=== PATIENT | female | born 1995 | race Caucasian/White ===

== ENCOUNTER 2017-09-17 05:42 | Inpatient (IN) | payer OTHER ==
[2017-09-17] MEDS ORDERED: NICOTINE 21MG/24HR PATCH TRANSDERM STA (06:23)
[2017-09-17 06:29] LABS: Amphetamine Screen,Urine Not Detected (NotDetected); Barbiturate Screen,Urine Not Detected (NotDetected); Benzodiazepines Screen,Urine Not Detected (NotDetected); Cocaine Screen,Urine Not Detected (NotDetected); Methadone Screen, Urine Not Detected (NotDetected); Opiate Screen,Urine Not Detected (NotDetected); Oxycodone Screen, Urine Not Detected (NotDetected); Phencyclidine Screen,Urine Not Detected (NotDetected); Tricyclic Antidepressant,Urine Not Detected (NotDetected); Urn Cannabinoid Scrn Detected (NotDetected)
--- NOTE | 2017-09-17 06:31 | ED ---
General Adult HPI - General Source: patient, RN notes reviewed Mode of arrival: ambulatory Limitations: no limitations <Peter Mccrary - Last Filed: 09/17/17 06:59> <Peter Bronson - Last Filed: 09/17/17 13:22> - General Chief complaint: Psychiatric Symptoms Stated complaint: Mental Health Time Seen by Provider: 09/17/17 05:50 - History of Present Illness Initial comments: 22-year-old female presenting with suicidal ideation and threatening behavior. Patient states that she's been feeling depressed for several weeks. This evening she did have a kitchen knife, threatening to take her life. She admits to ingesting alcohol, denies taking any other pills or medications. She has no significant past medical history. She has never been evaluated for suicidal ideation in the past. She states she has dealt with depression and suicidal thoughts for many years. (Peter Mccrary) - Related Data Home Medications Medication Instructions Recorded Confirmed No Known Home Medications [No 09/17/17 09/17/17 Known Home Medications] Allergies Allergy/AdvReac Type Severity Reaction Status Date / Time amoxicillin Allergy Rash/Hives Verified 09/17/17 10:08 Review of Systems ROS Other: All systems not noted in ROS Statement are negative. <Peter Mccrary - Last Filed: 09/17/17 06:59> ROS Other: All systems not noted in ROS Statement are negative. <Peter Bronson - Last Filed: 09/17/17 13:22> ROS Statement: Those systems with pertinent positive or pertinent negative responses have been documented in the HPI. Past Medical History Past Medical History: No Reported History History of Any Multi-Drug Resistant Organisms: None Reported Past Surgical History: No Surgical Hx Reported Past Psychological History: Anxiety, Bipolar, Depression Smoking Status: Current every day smoker Past Alcohol Use History: Occasional Past Drug Use History: None Reported <Peter Mccrary - Last Filed: 09/17/17 06:59> General Exam Limitations: no limitations General appearance: alert, appears intoxicated Head exam: Present: atraumatic, normocephalic Eye exam: Present: normal appearance, PERRL, EOMI ENT exam: Present: normal exam Neck exam: Present: normal inspection. Absent: tenderness, meningismus Respiratory exam: Present: normal lung sounds bilaterally. Absent: respiratory distress, wheezes Cardiovascular Exam: Present: regular rate, normal rhythm GI/Abdominal exam: Present: soft. Absent: distended, tenderness Extremities exam: Present: normal inspection, full ROM. Absent: normal capillary refill, pedal edema Neurological exam: Present: alert, oriented X3, CN II-XII intact. Absent: motor sensory deficit Psychiatric exam: Present: depressed, anxious, suicidal ideation Skin exam: Present: warm, dry, intact. Absent: cyanosis, diaphoretic <Peter Mccrary - Last Filed: 09/17/17 06:59> Course <Peter Mccrary - Last Filed: 09/17/17 06:59> <Peter Bronson - Last Filed: 09/17/17 13:22> Vital Signs 09/17/17 09/17/17 09/17/17 05:44 07:20 08:27 Temperature 98.8 F Pulse Rate 107 H Respiratory 20 16 16 Rate Blood Pressure O2 Sat by Pulse 99 Oximetry 09/17/17 13:18 Temperature Pulse Rate 92 Respiratory 15 Rate Blood Pressure 155/77 O2 Sat by Pulse 100 Oximetry - Reevaluation(s) Reevaluation #1: 09/17/17 0700 Patient's care is signed out to Dr. Bronson at shift change, awaiting sobriety and EPS evaluation for suicidal ideation. 09/17/17 06:59 (Peter Mccrary) Reevaluation #2: 09/17/17 13:22 The patient was evaluated by the EPS service after she was deemed to be sober she will be admitted for inpatient treatment. (Peter Bronson) - Lab Data Lab Results 09/17/17 Range/Units 06:11 Urine Opiates Screen Not Detected (NotDetected) Ur Oxycodone Screen Not Detected (NotDetected) Urine Methadone Screen Not Detected (NotDetected) Ur Propoxyphene Screen Not Detected (NotDetected) Ur Barbiturates Screen Not Detected (NotDetected) U Tricyclic Antidepress Not Detected (NotDetected) Ur Phencyclidine Scrn Not Detected (NotDetected) Ur Amphetamines Screen Not Detected (NotDetected) U Methamphetamines Scrn Not Detected (NotDetected) U Benzodiazepines Scrn Not Detected (NotDetected) Urine Cocaine Screen Not Detected (NotDetected) U Marijuana (THC) Screen Detected H (NotDetected) Disposition <Peter Mccrary - Last Filed: 09/17/17 06:59> <Peter Bronson - Last Filed: 09/17/17 13:22> Clinical Impression: Depression, Suicidal ideation, Alcohol intoxication Disposition: TRANSFER TO PSYCH HOSP/UNIT Condition: Stable Referrals: None,Stated [Primary Care Provider] - 1-2 days
[2017-09-17] MEDS ORDERED: IBUPROFEN 600 MG TAB PO STA (11:15)
[2017-09-17] MEDS ORDERED: MAG HYDROX/AL HYDROX/SIMETH 30 ML CUP PO PRN (13:27)
[2017-09-17] MEDS ORDERED: ACETAMINOPHEN TAB 325 MG TAB PO PRN (13:27)
[2017-09-17] MEDS ORDERED: MAGNESIUM HYDROXIDE 2,400 MG/10 ML CUP PO PRN (13:27)
[2017-09-17 13:57] LABS: Appearance,Urine Clear (Clear); Bilirubin,Urine Negative (Negative); Blood,Urine Negative (Negative); Color,Urine Light Yellow; Glucose,Urine (UA) Negative (Negative); Ketones,Urine Trace (Negative); Leukocyte Esterase,Urine Negative (Negative); Nitrite,Urine Negative (Negative); Protein,Urine Negative (Negative); Specific Gravity,Urine 1.009 (1.001-1.035); Urobilinogen,Urine <2.0 mg/dL (<2.0)
[2017-09-17 14:22] VITALS: BMI 29.9
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
--- NOTE | 2017-09-17 18:24 | P.HPMEDMHU ---
History of Present Illness H&P Date: 09/17/17 Chief Complaint: H&P for MHU The patient is a 22-year-old female with no significant past medical history who was admitted to the psychiatric unit after she presented here with her friend with chief complaint of suicidal ideation ongoing depression, the patient has not formally been diagnosed with any psychiatric illnesses previously, she does report a prior suicidal attempt noted as cutting a few years ago. She denies any auditory or visual hallucinations or delusions. Apparently the patient recently moved back to [facility] from [place] where she apparently lost her apartment after her roommate was incarcerated, the patient subsequently moved back to [facility] to be close friends, patiently recently started a job at a local [employer]. She does report a history of smoking, and does have a nonproductive cough for the last 3 months,she denies any shortness of air or chest pain. She does report a history of seasonal ALLERGIES and does complain of rhinitis and itchy eyes for the last couple months, she is currently not on any antihistamines Or Flonase despite trying them in the past. She denies any subjective fevers or chills or night sweats. In the ER her UDS was noted to be positive for THC, she does report a history of alcoholism reports she is a social drinker off [place], she denies having any episodes of alcohol withdrawal. She reports drinking a pint of Maria Luz that is split between her four friends, she reports to being hung over today. Review of Systems OTHER 14 Is negative except per HPI Past Medical History Past Medical History: No Reported History History of Any Multi-Drug Resistant Organisms: None Reported Past Surgical History: No Surgical Hx Reported Past Psychological History: Anxiety, Bipolar, Depression Smoking Status: Current every day smoker Past Alcohol Use History: Occasional Additional Past Alcohol Use History / Comment(s): Pt. drinks one drink a few times a week; Last night she shared a pint of liquor with her 3 roommates. Past Drug Use History: Marijuana Additional Drug Use History / Comment(s): UDS positive for MJ and pt. admits to using it. Medications and Allergies Home Medications Medication Instructions Recorded Confirmed Type No Known Home Medications [No 09/17/17 09/17/17 History Known Home Medications] Allergies Allergy/AdvReac Type Severity Reaction Status Date / Time amoxicillin Allergy Rash/Hives Verified 09/17/17 14:57 Physical Exam Vitals: Vital Signs Temp Pulse Pulse Resp BP BP Pulse Ox 09/17/17 13:58 99.3 F 83 20 137/85 98 09/17/17 13:18 92 15 155/77 100 09/17/17 08:27 16 09/17/17 07:20 16 09/17/17 05:44 98.8 F 107 H 20 99 Intake and Output 09/17/17 09/17/17 09/17/17 06:59 14:59 22:59 Other: Weight 90.718 kg 94.829 kg Constitutional: No acute distress, conversant, pleasant Eyes: Anicteric sclerae, moist conjunctiva, no lid-lag, PERRLA ENMT: NC/AT,Oropharynx clear, no erythema, exudates Neck:Supple, FROM, no masses, or JVD, No carotid bruits; No thyromegaly Lungs: Clear to auscultation, Clear to percussion, Normal respiratory effort, no accessory muscle use Cardiovascular: Heart regular in rate and rhythm, No murmurs, gallops, or rubs no peripheral edema Abdominal: Soft Nontender, nom distended, no guarding, no rebound or rigidity, Normoactive bowel sounds No hepatomegaly, No splenomegaly, No palpable mass No abdominal wall hernia noted Skin: Normal temperature, tone, texture, turgor, No induration No subcutaneous nodules, No rash, lesions, No ulcers Extremities:No digital cyanosis No clubbing, Pedal pulses intact and symmetrical Radial pulses intact and symmetrical Normal gait and station, No calf tenderness Psychiatric: Alert and oriented to person, place and time, Appropriate affect Intact judgement Neuro: Muscles Strength 5/5 in all 4 extremities, Sensation to light touch grossly present throughout, Cranial nerves II-XII grossly intact. No focal sensory deficits Cranial Nerve Examination - Cranial Nerves Cranial Nerve II- Optic: Intact Cranial Nerve III- Oculomotor: Intact Cranial Nerve IV- Trochlear: Intact Cranial Nerve V- Trigeminal: Intact Cranial Nerve - Abducens: Intact Cranial Nerve VII- Facial: Intact Cranial Nerve VIII- Auditory: Intact Cranial Nerve IX- Glossopharyngeal: Intact Cranial Nerve X- Vagus: Intact Cranial Nerve XI- Accessory: Intact Cranial Nerve XII- Hypoglossal: Intact Results Labs: Abnormal Lab Results - Last 24 Hours (Table) 09/17/17 09/17/17 Range/Units 06:11 06:11 Urine Ketones Trace H (Negative) U Marijuana (THC) Screen Detected H (NotDetected) Thrombosis Risk Factor Assmnt - Choose All That Apply Any of the Below Risk Factors Present?: No Other Risk Factors: No Other congenital or acquired thrombophilia - If yes, enter type in comment: No Thrombosis Risk Factor Assessment Level: Very Low Risk Assessment and Plan (1) Chronic cough Current Visit: Yes Status: Acute Code(s): R05 - COUGH SNOMED Code(s): 26568187 (2) Seasonal allergies Current Visit: Yes Status: Acute Code(s): J30.2 - OTHER SEASONAL ALLERGIC RHINITIS SNOMED Code(s): 035175853 (3) Depression Current Visit: Yes Status: Acute Code(s): F32.9 - MAJOR DEPRESSIVE DISORDER , SINGLE EPISODE, UNSPECIFIED SNOMED Code(s): 52635354 (4) Suicidal ideation Current Visit: Yes Status: Acute Code(s): R45.851 - SUICIDAL IDEATIONS SNOMED Code(s): 2327994 (5) Alcohol intoxication Current Visit: Yes Status: Acute Code(s): F10.929 - ALCOHOL USE, UNSPECIFIED WITH INTOXICATION, UNSPECIFIED SNOMED Code(s): 41669175 Plan: The patient is admitted to the mental health unit for suicidal ideation with ongoing depression she scored a 18 on her pHq9 and is currently positive for depressing symptomology, we'll defer to inpatient psychiatric team for psychotropic medication adjustment along with ongoing CBT. The patient is noted to have a chronic cough we'll check a chest x-ray, do suspect that this might be secondary to postnasal drip as a patient does have a history of seasonal ALLERGIES. We'll start the patient on oral antihistamine Claritin along with Flonase. Patient did present with a blood alcohol level .135, we'll monitor for withdrawal. We'll follow-up her chest x-ray and admission labs, in the event that they are normal will sign off. I appreciate the opportunity to be involved in ongoing care of this patient. Further questions or concerns please contact sounds physicians
--- NOTE | 2017-09-17 19:45 | XR ---
EXAMINATION TYPE: XR chest 2V DATE OF EXAM: 09/17/2017 COMPARISON: 11/11/2013 HISTORY: Cough TECHNIQUE: Frontal and lateral views of the chest are obtained. FINDINGS: Heart and mediastinum are normal. Lungs are clear. Diaphragm is normal. Bony thorax is int act. Pulmonary vascularity is normal. IMPRESSION: Normal chest. No change.
[2017-09-17] MEDS: QUEtiapine 25 MG TAB PO SCH ×2 (21:02→22:27)
[2017-09-18 06:52] VITALS: RESP 16
[2017-09-18] MEDS: FLUTICASONE 50MCG/SPRAY NASAL 16GM EA NOSTRIL SCH (08:32)
[2017-09-18] MEDS: LORATADINE 10 MG TAB PO SCH (08:34)
[2017-09-18] MEDS: NICOTINE 14MG/24HR PATCH TRANSDERM SCH (08:34)
[2017-09-18 09:36] LABS: Basophils % (A) 1 %; Eosinophils # (A) 0.1 k/uL (0-0.7); Eosinophils % (A) 2 %; HCT 38.2 % (34.0-46.0); HGB 13.2 gm/dL (11.4-16.0); Lymphocytes # (A) 1.7 k/uL (1.0-4.8); Lymphocytes % (A) 30 %; MCH 30.4 pg (25.0-35.0); MCHC 34.6 g/dL (31.0-37.0); Mean Platelet Volume 6.8; Monocytes # (A) 0.5 k/uL (0-1.0); Monocytes % (A) 8 %; Neutrophils # (A) 3.2 k/uL (1.3-7.7); Neutrophils % (A) 57 %; Platelet Count 197 k/uL (150-450); RBC 4.35 m/uL (3.80-5.40); RDW 12.3 % (11.5-15.5); WBC 5.7 k/uL (4.0-11.0)
[2017-09-18 09:45] LABS: ALT 17 U/L (9-52); AST 16 U/L (14-36); Alkaline Phosphatase 46 U/L (38-126); Anion Gap 12 mmol/L; Blood Urea Nitrogen 13 mg/dL (7-17); Calcium 9.5 mg/dL (8.4-10.2); Carbon Dioxide 26 mmol/L (22-30); Chloride 104 mmol/L (98-107); Glucose 82 mg/dL (74-99); Potassium 4.1 mmol/L (3.5-5.1); Sodium 142 mmol/L (137-145); Total Protein 6.5 g/dL (6.3-8.2)
--- NOTE | 2017-09-18 10:12 | P.PN ---
Progress Note - Text Progress Note Date: 09/18/17 Patient was seen for routine follow-up examination. Initially she said she was not given Seroquel last night. In neck checked DiMare indicates that she got it at 2227 hrs. After some discussion she said they must have given her in between her sleep because she does not remember that. She said her sleep was interrupted but she thinks she had enough sleep. She denies any adverse effects from Seroquel. She has been attending groups and socializing with select group of patients in the unit. This is a tall ambulatory white female with good hygiene. She is polite friendly and cooperative. She does not show any psychomotor agitation or retardation. Her speech is spontaneous relevant and goal-directed. Her mood is euthymic to cheerful and affect is appropriate. She denies hallucinations, delusional thinking, suicidal and homicidal ideas. She is well oriented with adequate memory concentration general knowledge etc. Plan: Increase Seroquel to 50 mg at bedtime, continue groups and other therapies.
[2017-09-18] MEDS ORDERED: QUEtiapine 50 MG TAB PO SCH (21:00)
[2017-09-19] MEDS: NICOTINE 14MG/24HR PATCH TRANSDERM SCH (08:12)
[2017-09-19] MEDS: FLUTICASONE 50MCG/SPRAY NASAL 16GM EA NOSTRIL SCH (08:13)
[2017-09-19] MEDS: LORATADINE 10 MG TAB PO SCH (08:13)
--- NOTE | 2017-09-19 15:55 | P.PN ---
Progress Note - Text Progress Note Date: 09/19/17 Patient reports feeling sad, hopeless and anxious. She says being in the hospital is not helping her with her anxiety. She describes her anxiety as having difficulty with breathing and feeling heavy in her lungs. She also reports feeling hot and shaky with tremors at times. She says she has always felt depressed and claims nothing makes her happy. She states there is nothing to look forward to in her life. She denies current suicidal or homicidla ideations. She reports her moods have been more down lately. She reports going to all her groups except the first one inthe morning. SHe states she likes to read after eating her breakfast. She reports reading helps her feel less anxious. 22-year-old female appeared her stated age in fair grooming and hygiene. She is pleasant and cooperative. No abnormal movements noted. Her speech and thought processes are goal directed. Her mood is reported as anxious and affect constricted. She denies current auditory, visual hallucinations. She denies paranoia. She is alert and oriented 4. She denies current suicidal or homicidal ideations. Insight and judgment are improving. Plan: Increase Seroquel dose to 75 mg at bedtime. We will start her on Zoloft 25 mg by mouth now. Patient to take Zoloft 25 mg by mouth every a.m. monitor patient for symptoms. If patient responds well to Zoloft, dose can be increased to 50 mg by mouth every morning from Thursday onwards.
[2017-09-19] MEDS: SERTRALINE 25 MG TAB PO SCH (15:57)
[2017-09-19] MEDS: QUEtiapine 25 MG TAB PO SCH (20:18)
[2017-09-20] MEDS: NICOTINE 14MG/24HR PATCH TRANSDERM SCH (09:31)
[2017-09-20] MEDS: FLUTICASONE 50MCG/SPRAY NASAL 16GM EA NOSTRIL SCH (09:31)
[2017-09-20] MEDS: LORATADINE 10 MG TAB PO SCH (09:32)
[2017-09-20] MEDS: SERTRALINE 25 MG TAB PO SCH (09:33)
--- NOTE | 2017-09-20 18:14 | P.PN ---
Progress Note - Text Progress Note Date: 09/20/17 Patient was seen toady. She was reading a book in her room. She reports she does not want to take zoloft any more. She stated it made her feel nauseous and claims it made her anxiety worse. She stated higher dose of seroquel had helped her to sleep better and reports feeling good today. She denies current suicidal or homicidla ideations. 22-year-old female appeared her stated age in fair grooming and hygiene. She is pleasant and cooperative. No abnormal movements noted. Her speech and thought processes are goal directed. Her mood is reported as GOOD and affect constricted. She denies current auditory, visual hallucinations. She denies paranoia. She is alert and oriented 4. She denies current suicidal or homicidal ideations. Insight and judgment are improving. Plan:Continue Seroquel dose to 75 mg at bedtime. Patient refuses to take zoloft. Will discontinue zoloft. She refuses to take any other medications at this time and states higher dose of seroquel is helping her and wants to stay only on seroquel at this time.
[2017-09-20] MEDS: QUEtiapine 25 MG TAB PO SCH (20:11)
[2017-09-21 06:36] VITALS: BP 125/73; PULSE 73; TEMP 98.7
[2017-09-21] MEDS: FLUTICASONE 50MCG/SPRAY NASAL 16GM EA NOSTRIL SCH (08:28)
[2017-09-21] MEDS: LORATADINE 10 MG TAB PO SCH (08:28)
[2017-09-21] MEDS: NICOTINE 14MG/24HR PATCH TRANSDERM SCH (08:29)
--- NOTE | 2017-09-21 11:48 | P.DS ---
Providers Date of admission: 09/17/17 13:17 Expected date of discharge: 09/21/17 Attending physician: Philly Mathis Consults: 09/17/17 13:27 Consult Physician Routine Consulting Provider: Grace Huntley Consult Reason/Comments: follow up H & P Do you want consulting provider notified?: Yes Primary care physician: Stated None Hospital Course: Patient had her psychiatric evaluation, physical examination and psychosocial evaluation. After psychiatric evaluation it was agreed for her to try Seroquel 50 mg at bedtime for "mood stabilization"and insomnia. She took this medication well without any adverse effect. It was increased to 75 mg at bedtime on 09/19/2017 by the weekend psychiatrist without any adverse effect. For reasons not clear, she was also started on Zoloft by the weekend psychiatrist on the same day. Patient did not like the effects of it and so it was canceled next day. After physical examination she was started on Flonase and Claritin for ALLERGIC rhinitis. Patient also attended groups and other activities. She socialized with peers and interacted with staff members. She continued to deny suicide and homicide ideas. He also agreed to continue outpatient treatment. In view of all these it was agreed to discharge her. Condition on discharge: This is a tall ambulatory white female with good hygiene. She is polite friendly cheerful and cooperative. She does not show any psychomotor agitation or retardation. Her speech is spontaneous relevant and goal-directed. Her mood is cheerful and affect is appropriate. She denies hallucinations, delusional thinking, suicidal and homicidal ideas. She is well oriented with good memory concentration general knowledge etc. her insight and judgment are adequate. Diagnosis on discharge: Adjustment disorder, unspecified F 43.20. Borderline personality disorder F 60.3. Cannabis use disorder severe F 12.20. Alcohol use disorder severe F 10.20. ALLERGY to amoxicillin. ALLERGIC rhinitis. Patient was advised and agreed to take her medications as prescribed, not to drink alcohol or use drugs, to learn better coping skills through therapy, not to drive or operate missionary if she feels sleepy, to inform her doctor if she gets , to call her psychiatrist or therapist if she gets any suicidal thoughts and if she cannot get hold of them to go to nearest ER. Plan - Discharge Summary Discharge Rx Participant: No New Discharge Prescriptions: New Fluticasone Nasal [place] [Flonase Nasal [place]] 2 spray EA NOSTRIL DAILY 30 Days #2 spr Loratadine [Claritin] 10 mg PO DAILY 30 Days #30 tab QUEtiapine [SEROquel] 75 mg PO HS 30 Days #30 tab Discharge Medication List Fluticasone Nasal [place] [Flonase Nasal [place]] 2 spray EA NOSTRIL DAILY 30 Days # 2 spr 09/21/17 [Rx] Loratadine [Claritin] 10 mg PO DAILY 30 Days #30 tab 09/21/17 [Rx] QUEtiapine [SEROquel] 75 mg PO HS 30 Days #30 tab 09/21/17 [Rx] Follow up Appointment(s)/Referral(s): None,Stated [Primary Care Provider] - 1-2 days Patient Instructions/Handouts: Depression (DC), Suicide Prevention for Adults ( DC) Activity/Diet/Wound Care/Special Instructions: Activity and diet as tolerated. Avoid the use of street drugs and alcohol. Remove all firearms from home. Take all medications as prescribed. When you are in need of refills of your medication please contact your medical provider and/ or outpatient psychiatrist to have this done. Please go to scheduled outpatient appointment for aftercare. If symptoms return or become worse you can call the Crisis Line at and/or go to the nearest emergency room for an evaluation.
== END 2017-09-21 16:08 | disposition home or self-care (01) | DRG 882 ==
LOC: EC 05:42 → 3MHU 13:17
PROVIDERS: ADMIT Psychiatry & Neurology Psychiatry; ATTEND Psychiatry & Neurology Psychiatry
DX: F43.20 Adjustment disorder, unspecified (principal); R45.851 Suicidal ideations; F60.3 Borderline personality disorder; F10.20 Alcohol dependence, uncomplicated; Z88.1 Allergy status to other antibiotic agents; F12.20 Cannabis dependence, uncomplicated; F17.200 Nicotine dependence, unspecified, uncomplicated; G47.00 Insomnia, unspecified; J30.9 Allergic rhinitis, unspecified; Z91.5 Personal history of self-harm; Z79.899 Other long term (current) drug therapy; Z81.8 Family history of other mental and behavioral disorders; Z88.0 Allergy status to penicillin; Z71.41 Alcohol abuse counseling and surveillance of alcoholic; Z71.51 Drug abuse counseling and surveillance of drug abuser
CPT/HCPCS: 71046; 80053; 80306; 81003; 81025; 82075; 84443; 85025; 99285

== ENCOUNTER 2019-02-02 16:44 | Inpatient (IN) | payer MEDICAID, OTHER ==
[2019-02-02] MEDS ORDERED: SODIUM CHLORIDE 0.9% 1,000 ML IV STA (17:22)
[2019-02-02] MEDS ORDERED: ONDANSETRON 4 MG/2 ML VIAL IVP STA (17:22)
[2019-02-02] MEDS ORDERED: MORPHINE SULFATE 4 MG/ML SYRINGE IV STA (17:22)
[2019-02-02] MEDS ORDERED: ACETAMINOPHEN TAB 500 MG TAB PO STA (17:23)
[2019-02-02 17:56] LABS: Basophils % (A) 0 %; Eosinophils # (A) 0.1 k/uL (0-0.7); Eosinophils % (A) 0 %; HCT 38.9 % (34.0-46.0); HGB 13.3 gm/dL (11.4-16.0); Lymphocytes # (A) 0.9 k/uL (1.0-4.8); Lymphocytes % (A) 4 %; MCHC 34.2 g/dL (31.0-37.0); MCV 87.7 fL (80.0-100.0); Mean Platelet Volume 7.3; Monocytes # (A) 0.4 k/uL (0-1.0); Monocytes % (A) 2 %; Neutrophils % (A) 93 %; Platelet Count 247 k/uL (150-450); RBC 4.44 m/uL (3.80-5.40); RDW 13.9 % (11.5-15.5); WBC 21.4 k/uL (3.8-10.6)
[2019-02-02 18:01] LABS: ALT 36 U/L (9-52); AST 25 U/L (14-36); African American GFR (CKD) >90 (>60 ml/min/1.73 sqM); Albumin 4.3 g/dL (3.5-5.0); Alkaline Phosphatase 73 U/L (38-126); Anion Gap 13 mmol/L; Blood Urea Nitrogen 5 mg/dL (7-17); Calcium 9.5 mg/dL (8.4-10.2); Carbon Dioxide 18 mmol/L (22-30); Chloride 104 mmol/L (98-107); Glucose 135 mg/dL (74-99); Potassium 3.5 mmol/L (3.5-5.1); Sodium 135 mmol/L (137-145); Total Bilirubin 1.4 mg/dL (0.2-1.3); Total Protein 7.2 g/dL (6.3-8.2)
[2019-02-02 18:03] LABS: Appearance,Urine Clear (Clear); Bilirubin,Urine Negative (Negative); Blood,Urine Negative (Negative); Color,Urine Yellow; Glucose,Urine (UA) Negative (Negative); Ketones,Urine 1+ (Negative); Leukocyte Esterase,Urine Moderate (Negative); Mucus,Urine Occasional /hpf; Nitrite,Urine Negative (Negative); PH, Urine 8.5 (5.0-8.0); Protein,Urine 1+ (Negative); RBC,Urine 4 /hpf (0-5); Specific Gravity,Urine 1.021 (1.001-1.035); Squamous Epithelial Cell,Urine 2 /hpf (0-4); Urobilinogen,Urine <2.0 mg/dL (<2.0); WBC,Urine 19 /hpf (0-5)
[2019-02-02] MEDS ORDERED: MORPHINE SULFATE 4 MG/ML SYRINGE IVP STA (19:13)
--- NOTE | 2019-02-02 19:14 | US ---
EXAMINATION TYPE: US transvaginal DATE OF EXAM: 02/02/2019 COMPARISON: NONE CLINICAL HISTORY: lower pelvic pain. Lower pelvic pain x 2 days. LMP unknown. G0. TECHNIQUE: Transvaginal (TV). Date of LMP: Unknown EXAM MEASUREMENTS: Uterus: 7.7 x 3.7 x 3.1 cm Endometrial Stripe: 0.66 cm Right Ovary: 3.2 x 2.8 x 2.3 cm Left Ovary: 1.7 cm in width. Patient could not tolerate exam any longer to further evaluate the left ovary due to severe pain. *limited exam due to pain 1. Uterus: Anteverted. Appears wnl 2. Endometrium: Appears wnl 3. Right Ovary: Anechoic area with minimal internal echoes seen measurin.9 x 0.9 x 0.7 cm. Multi ple smaller anechoic areas seen. 4. Left Ovary: Limited, appears wnl Spectral, color and waveform doppler imaging shows good arterial and venous flow within the ovaries ; there is no evidence for ovarian torsion. 5. Bilateral Adnexa: Bowel peristalsis seen throughout. 6. Posterior cul-de-sac: appears wnl IMPRESSION: Negative transvaginal pelvic sonogram. No evidence of ovarian torsion. Small right ovary cyst.
--- NOTE | 2019-02-02 19:28 | CT ---
EXAMINATION TYPE: CT abdomen pelvis w con DATE OF EXAM: 02/02/2019 COMPARISON: None HISTORY: lower anterior abdominal pain CT DLP: 1132.9 mGycm Automated exposure control for dose reduction was used. TECHNIQUE: Helical acquisition of images was performed from the lung bases through the pelvis. CONTRAST: Performed without Oral Contrast and with IV Contrast, patient injected with 100 mL of Isovue 300. FINDINGS: Lung bases are clear. There is no pleural effusion. Heart size is normal. Stomach appears normal. Liver spleen pancreas gallbladder appear normal. Bile ducts are not dilated. There is no adrenal mass. Kidneys show satisfactory contrast opacification. There is no hydronephrosi s. Ureters are not dilated. Bladder distends smoothly. There is no inguinal hernia. There is no free fluid in the pelvis. There is large bowel fluid. This extends down to the rectum with fluid level. Th ere is no evidence of a pelvic mass. Appendix is medial and measures 7 mm. I see no sign of appendici tis. There is no evidence of free air. There is no ascites. Lumbar spine is intact. Bony pelvis appears in tact. There is no evidence of a bowel obstruction. There is no mesenteric edema. IMPRESSION: LARGE BOWEL FLUID AND FLUID LEVELS CONSISTENT WITH ILEUS AND DIARRHEA.
[2019-02-02] MEDS ORDERED: ACETAMINOPHEN TAB 325 MG TAB PO PRN (20:35)
[2019-02-02] MEDS ORDERED: NALOXONE 0.4 MG/ML 1 ML VIAL IV PRN (20:35)
--- NOTE | 2019-02-02 20:35 | ED ---
Abdominal Pain HPI - General Chief Complaint: Abdominal Pain Stated Complaint: Abd pain Time Seen by Provider: 02/02/19 17:09 Source: patient Mode of arrival: wheelchair Limitations: no limitations - History of Present Illness Initial Comments: The patient is a 23 year female who presents to the emergency department with reported lower abdominal pain, nausea and vomiting for the past 2 days. She describes it as a cramping sensation which is located in her left and right lower quadrants. The patient felt that she was constipated yesterday and there fore took some stool softeners. She states she had one episode of loose watery diarrhea. Denies any melanotic stools or hematochezia. Denies any recent travel or sick contacts. No recent antibiotic use. She does not work in healthcare. Today the pain became more severe. States that she's been taking Motrin and Tylenol without improvement. She admits to chills however did not attempt to take her temp. She admits to associated dysuria. Denies hematuria or increased frequency urination. Reports to 1 history of UTI in the past. She denies any abnormal vaginal bleeding or discharge. No concern for sexually transmitted infections. States that her last menstrual cycle was in the past week. Denies a concern for . No ripping or tearing sensation to her back. She does admit to mild flank pain. She denies any headaches or visual changes. No neck pain or stiffness. Denies cough or shortness of breath. There are no other alleviating, precipitating or modifying factors - Related Data Previous Rx's Medication Instructions Recorded Acetaminophen Tab [Tylenol Tab] 500 mg PO Q6H PRN #30 tablet 02/05/19 Famotidine [Pepcid] 20 mg PO BID #10 tablet 02/05/19 Levofloxacin [Levaquin] 500 mg PO DAILY #5 tab 02/05/19 metroNIDAZOLE [Flagyl] 500 mg PO Q8HR #15 tab 02/05/19 Allergies Allergy/AdvReac Type Severity Reaction Status Date / Time amoxicillin Allergy Rash/Hives Verified 02/02/19 17:21 Review of Systems ROS Statement: Those systems with pertinent positive or pertinent negative responses have been documented in the HPI. ROS Other: All systems not noted in ROS Statement are negative. Past Medical History Past Medical History: No Reported History History of Any Multi-Drug Resistant Organisms: None Reported Past Surgical History: No Surgical Hx Reported Past Psychological History: Anxiety, Bipolar, Depression Smoking Status: Current every day smoker Past Alcohol Use History: Occasional Past Drug Use History: Marijuana - Past Family History Mother Family Medical History: No Reported History Additional Family Medical History / Comment(s): No family history of ulcerative colitis or Crohn's disease Father Family Medical History: No Reported History Additional Family Medical History / Comment(s): Anxiety, bipolar General Exam Limitations: no limitations General appearance: alert, in distress Head exam: Present: atraumatic, normocephalic Eye exam: Present: normal appearance, PERRL, EOMI Pupils: Present: normal accommodation ENT exam: Present: normal exam, normal oropharynx, TM's normal bilaterally Neck exam: Present: normal inspection. Absent: tenderness, meningismus Respiratory exam: Absent: respiratory distress, wheezes, rales, rhonchi Cardiovascular Exam: Present: regular rate, tachycardia GI/Abdominal exam: Present: soft, tenderness (all abdominal quadrants), guarding, normal bowel sounds. Absent: rebound, rigid Rectal exam: Present: deferred Extremities exam: Present: normal inspection, full ROM Back exam: Present: normal inspection. Absent: CVA tenderness (R), CVA tenderness (L) Neurological exam: Present: alert, oriented X3 Psychiatric exam: Present: normal affect, anxious Skin exam: Present: warm, intact, diaphoretic Course Vital Signs 02/02/19 02/02/19 02/02/19 17:03 21:10 22:12 Temperature 100.6 F H 100.8 F H Pulse Rate 113 H 109 H Respiratory 24 18 18 Rate Blood Pressure 110/67 129/63 O2 Sat by Pulse 100 100 Oximetry Medical Decision Making - Medical Decision Making Upon arrival the patient is placed in room 22. She is hooked up to continuous pulse ox and cardiac monitoring. A thorough history and physical exam was performed. Peripheral IV was established. She was given 4 mg of morphine for pain 4 mg of Zofran for her nausea. The patient was also given a liter bolus of 0.9% normal saline. I did recommend a CT the patient's abdomen and pelvis as well as laboratory studies and an ultrasound of the patient's pelvis. Patient did agree to this. She does provide a urine sample. Upon review of the patient's lab work she does have an elevated white blood cell count of 21,000. She does have 4 out of 4 Sirs criteria. She is evaluated and continues to have abdominal pain. She is given a second dose of morphine. Serial abdominal exams demonstrate no peritoneal signs. CT of the patient's abdomen and pelvis does reveal liquid stool within the large bowel consistent with diarrhea and possible ileus. Pelvic ultrasound is essentially unremarkable. She is reevaluated once again he continues to complain of abdominal pain. I did order blood cultures and initiated the patient on Rocephin. Because of her intractable abdominal pain and did discuss the case with Dr. Sandoval who did accept admission of the patient. Bridging orders were placed and the patient was transported to the floor in stable condition - Lab Data Result diagrams: 02/05/19 07:00 02/05/19 07:00 Lab Results 02/02/19 02/02/19 02/02/19 Range/Units 17:30 17:30 17:30 WBC 21.4 H (3.8-10.6) k/uL RBC 4.44 (3.80-5.40) m/uL Hgb 13.3 (11.4-16.0) gm/dL Hct 38.9 (34.0-46.0) % MCV 87.7 (80.0-100.0) fL MCH 30.0 (25.0-35.0) pg MCHC 34.2 (31.0-37.0) g/dL RDW 13.9 (11.5-15.5) % Plt Count 247 (150-450) k/uL Neutrophils % 93 % Lymphocytes % 4 % Monocytes % 2 % Eosinophils % 0 % Basophils % 0 % Neutrophils # 20.0 H (1.3-7.7) k/uL Lymphocytes # 0.9 L (1.0-4.8) k/uL Monocytes # 0.4 (0-1.0) k/uL Eosinophils # 0.1 (0-0.7) k/uL Basophils # 0.0 (0-0.2) k/uL Sodium 135 L (137-145) mmol/L Potassium 3.5 (3.5-5.1) mmol/L Chloride 104 (98-107) mmol/L Carbon Dioxide 18 L (22-30) mmol/L Anion Gap 13 mmol/L BUN 5 L (7-17) mg/dL Creatinine 0.63 (0.52-1.04) mg/dL Est GFR (CKD-EPI)AfAm >90 (>60 ml/min/1.73 sqM) Est GFR (CKD-EPI)NonAf >90 (>60 ml/min/1.73 sqM) Glucose 135 H (74-99) mg/dL Plasma Lactic Acid Orestes 1.9 (0.7-2.0) mmol/L Calcium 9.5 (8.4-10.2) mg/dL Total Bilirubin 1.4 H (0.2-1.3) mg/dL AST 25 (14-36) U/L ALT 36 (9-52) U/L Alkaline Phosphatase 73 (38-126) U/L Total Protein 7.2 (6.3-8.2) g/dL Albumin 4.3 (3.5-5.0) g/dL Lipase 31 (23-300) U/L Urine Color Urine Appearance (Clear) Urine pH (5.0-8.0) Ur Specific [place] (1.001-1.035) Urine Protein (Negative) Urine Glucose (UA) (Negative) Urine Ketones (Negative) Urine Blood (Negative) Urine Nitrite (Negative) Urine Bilirubin (Negative) Urine Urobilinogen (<2.0) mg/dL Ur Leukocyte Esterase (Negative) Urine RBC (0-5) /hpf Urine WBC (0-5) /hpf Ur Squamous Epith Cells (0-4) /hpf Urine Mucus (None) /hpf Urine HCG, Qual (Not Detectd) 02/02/19 02/02/19 Range/Units 17:30 17:30 WBC (3.8-10.6) k/uL RBC (3.80-5.40) m/uL Hgb (11.4-16.0) gm/dL Hct (34.0-46.0) % MCV (80.0-100.0) fL MCH (25.0-35.0) pg MCHC (31.0-37.0) g/dL RDW (11.5-15.5) % Plt Count (150-450) k/uL Neutrophils % % Lymphocytes % % Monocytes % % Eosinophils % % Basophils % % Neutrophils # (1.3-7.7) k/uL Lymphocytes # (1.0-4.8) k/uL Monocytes # (0-1.0) k/uL Eosinophils # (0-0.7) k/uL Basophils # (0-0.2) k/uL Sodium (137-145) mmol/L Potassium (3.5-5.1) mmol/L Chloride (98-107) mmol/L Carbon Dioxide (22-30) mmol/L Anion Gap mmol/L BUN (7-17) mg/dL Creatinine (0.52-1.04) mg/dL Est GFR (CKD-EPI)AfAm (>60 ml/min/1.73 sqM) Est GFR (CKD-EPI)NonAf (>60 ml/min/1.73 sqM) Glucose (74-99) mg/dL Plasma Lactic Acid Orestes (0.7-2.0) mmol/L Calcium (8.4-10.2) mg/dL Total Bilirubin (0.2-1.3) mg/dL AST (14-36) U/L ALT (9-52) U/L Alkaline Phosphatase (38-126) U/L Total Protein (6.3-8.2) g/dL Albumin (3.5-5.0) g/dL Lipase (23-300) U/L Urine Color Yellow Urine Appearance Clear (Clear) Urine pH 8.5 H (5.0-8.0) Ur Specific [place] 1.021 (1.001-1.035) Urine Protein 1+ H (Negative) Urine Glucose (UA) Negative (Negative) Urine Ketones 1+ H (Negative) Urine Blood Negative (Negative) Urine Nitrite Negative (Negative) Urine Bilirubin Negative (Negative) Urine Urobilinogen <2.0 (<2.0) mg/dL Ur Leukocyte Esterase Moderate H (Negative) Urine RBC 4 (0-5) /hpf Urine WBC 19 H (0-5) /hpf Ur Squamous Epith Cells 2 (0-4) /hpf Urine Mucus Occasional H (None) /hpf Urine HCG, Qual Not Detected (Not Detectd) Disposition Clinical Impression: Abdominal pain, Leukocytosis, SIRS (systemic inflammatory response syndrome), Pyrexia, Acute UTI Disposition: ADMITTED IP TO THIS [facility] Condition: Stable Is patient prescribed a controlled substance at d/c from ED?: No Decision to Admit Reason: Admit from EC Decision Date: 02/02/19 Decision Time: 20:35
[2019-02-02] MEDS: IBUPROFEN 400 MG TAB PO PRN (23:02)
[2019-02-03] MEDS ORDERED: ONDANSETRON 4 MG/2 ML VIAL IVP PRN (00:13)
--- NOTE | 2019-02-03 00:28 | P.HPIM ---
History of Present Illness H&P Date: 02/03/19 Chief Complaint: Abdominal pain 23-year-old female with no significant past medical history Patient presented hospital with acute onset abdominal pain worsening over the past day or 2. Patient reports pain ranging between 6-10 out of 10 in severity worse with movement. Patient reports that pain is mainly over the central part of the belly like a belt radiating to the lower part of the belly and suprapubic region and right lateral lower quadrants. This started yesterday in a milder form she thought she might be constipated for which she took laxatives she had passed a bowel movement since yesterday with no improvement in symptoms. Patient denies any melena or bloody bowel movement patient even denies any diarrhea however reports soft bowel movements. Denies any mucus discharge. Patient reports positive for fevers and chills and nausea and vomiting, she vomi kathleen stomach liquids and juices. Denies any hematemesis or coffee-ground vomiting. Patient denies taking any NSAIDs at home. Denies any chest pain or trouble breathing dizziness or lightheadedness. Patient denies any recent traveling or unsanitary food. Patient denies any similar symptoms in the past. Patient most recent bowel movements was this morning, she reports that she is passing gases. Patient reports that she's not sexually active, denies any history of sexually transmitted diseases. Patient denies any vaginal discharge or bleeding, she reports having regular menstrual cycle her last period was a week ago she is currently midcycle. Patient is not taking any contraceptives. Patient denies any alcohol intake however she admits to smoking couple cigarettes every day and smoking weeds occasionally Patient denies any recent traveling or trauma to the belly she denies any his tory of ovarian cysts, she denies any recent antibiotics. Denies any history of UTI except for when she was child. In the ED blood work revealed elevated white count, normal lactic acid. Computed tomography scan of the abdomen performed suggested ileus with diarrhea. However no evidence of appendicitis. Transvaginal ultrasound performed showed no evidence of ovary and torsion Review of Systems Pertinent positives as noted in HPI. All other systems were reviewed and are negative Past Medical History Past Medical History: No Reported History History of Any Multi-Drug Resistant Organisms: None Reported Past Surgical History: No Surgical Hx Reported Past Psychological History: Anxiety, Bipolar, Depression Smoking Status: Current every day smoker Past Alcohol Use History: Occasional Additional Past Alcohol Use History / Comment(s): Pt. drinks one drink a few times a week; Last night she shared a pint of liquor with her 3 roommates. Past Drug Use History: Marijuana Additional Drug Use History / Comment(s): UDS positive for MJ and pt. admits to using it. - Past Family History Mother Family Medical History: No Reported History Additional Family Medical History / Comment(s): No family history of ulcerative colitis or Crohn's disease Father Family Medical History: No Reported History Additional Family Medical History / Comment(s): Anxiety, bipolar Medications and Allergies Home Medications Medication Instructions Recorded Confirmed Type No Known Home Medications 02/02/19 02/02/19 History Allergies Allergy/AdvReac Type Severity Reaction Status Date / Time amoxicillin Allergy Rash/Hives Verified 02/02/19 17:21 Physical Exam Vitals: Vital Signs Temp Pulse Resp BP Pulse Ox 02/02/19 23:38 18 02/02/19 22:12 18 02/02/19 21:10 100.8 F H 109 H 18 129/63 100 02/02/19 17:03 100.6 F H 113 H 24 110/67 100 Intake and Output 02/02/19 02/02/19 02/03/19 14:59 22:59 06:59 Output Total 0 Balance 0 Output: Stool 0 Other: Weight 90.718 kg Constitutional: Patient seems to be uncomfortable with pain with movement, conversant, cooperative with exam and interview Eyes: Anicteric sclerae, moist conjunctiva, Pupils equal round reactive to light ENMT: NC/AT Oropharynx clear, no erythema, or exudates Neck: Supple, FROM, no masses, or JVD No carotid bruits No thyromegaly Lungs: Clear to auscultation Clear to percussion Normal respiratory effort, no accessory muscle use Cardiovascular: Heart regular in rate and rhythm, No murmurs, gallops, or rubs No peripheral edema Abdominal: Soft, diffusely tender to palpation especially over the mid to lower abdomen, no tenderness to percussion of the costovertebral angle No rebound tenderness, no rigidity, voluntary guarding positive, bowel sounds positive Abdomen moving with respiration No hepatomegaly, No splenomegaly No palpable mass No abdominal wall hernia noted Skin: Normal temperature, tone, texture, turgor No induration No subcutaneous nodules No rash, lesions No ulcers Extremities: No digital cyanosis No clubbing Pedal pulses intact and symmetrical Radial pulses intact and symmetrical No calf tenderness Psychiatric: Alert and oriented to person, place and time Appropriate affect fair judgment Neuro Muscles Strength 5/5 in all 4 extremities Sensation to light touch grossly present throughout Cranial nerves II-XII grossly intact No focal sensory deficits Lymphatics: no palpable cervical or supraclavicular , or inguinal lymph nodes Results CBC & Chem 7: 02/02/19 17:30 02/02/19 17:30 Labs: Abnormal Lab Results - Last 24 Hours (Table) 02/02/19 02/02/19 02/02/19 Range/Units 17:30 17:30 17:30 WBC 21.4 H (3.8-10.6) k/uL Neutrophils # 20.0 H (1.3-7.7) k/uL Lymphocytes # 0.9 L (1.0-4.8) k/uL Sodium 135 L (137-145) mmol/L Carbon Dioxide 18 L (22-30) mmol/L BUN 5 L (7-17) mg/dL Glucose 135 H (74-99) mg/dL Total Bilirubin 1.4 H (0.2-1.3) mg/dL Urine pH 8.5 H (5.0-8.0) Urine Protein 1+ H (Negative) Urine Ketones 1+ H (Negative) Ur Leukocyte Esterase Moderate H (Negative) Urine WBC 19 H (0-5) /hpf Urine Mucus Occasional H (None) /hpf Thrombosis Risk Factor Assmnt - Choose All That Apply Any of the Below Risk Factors Present?: Yes Each Factor Represents 1 point: Obesity (BMI >25) Other Risk Factors: Yes Each Risk Factor Represents 3 Points: Family history of DVT/PE Thrombosis Risk Factor Assessment Total Risk Factor Score: 4 Thrombosis Risk Factor Assessment Level: Moderate Risk Assessment and Plan Assessment: 62-year-old male with history of A. fib status post ablation patient admitted under observation with anticipated length of stay less than to midnight due to recurrent A. fib with RVR and a flutter patient rate is controlled now however due to recurrent episode today cardiology recommended observation overnight and reevaluation in the morning Patient had an outpatient left heart cath today which was negative for any significant occlusions however after the test he had an episode of A. fib with RVR for which she was given Cardizem got controlled and was sent home but then came back to the hospital due to recurrent episodes Plan: Sepsis secondary to underlying colitis versus UTI Follow-up cultures Patient started on empiric and a biotic with Rocephin and Flagyl Pain control Aggressive IV fluid hydration GI consult Check C. diff Symptomatic control CT of the abdomen ruled out appendicitis, showed multiple fluid levels in the colon all the way to the rectum suggestive of diarrhea and ileus Transvaginal ultrasound ruled out ovarian torsion DVT prophylaxis heparin subcu 3 times a day CODE STATUS: Full code Discussed with: Patient, ER, RN Anticipated length of stay more than [address]: Home A total of 65 minutes was spent on the care of this complex patient more than 50% of the time was spent in counseling and care coordination.
[2019-02-03] MEDS: metroNIDAZOLE-NS PMX 500 MG in SALINE 1 100ML.BAG IVPB SCH ×3 (01:16→15:41)
[2019-02-03] MEDS: SODIUM CHLORIDE 0.9% 1,000 ML IV SCH ×3 (01:25→15:43)
[2019-02-03] MEDS: MORPHINE SULFATE 4 MG/ML SYRINGE IVP PRN ×4 (07:18→20:20)
[2019-02-03] MEDS: HEPARIN SODIUM,PORCINE 5,000 UNIT/ML 1 ML VIAL SQ SCH ×2 (07:18→15:40)
[2019-02-03 07:28] LABS: Basophils # (A) 0.1 k/uL (0-0.2); Basophils % (A) 0 %; Eosinophils # (A) 0.1 k/uL (0-0.7); Eosinophils % (A) 0 %; HGB 12.3 gm/dL (11.4-16.0); Lymphocytes # (A) 1.4 k/uL (1.0-4.8); Lymphocytes % (A) 6 %; MCH 30.4 pg (25.0-35.0); MCHC 34.1 g/dL (31.0-37.0); MCV 89.2 fL (80.0-100.0); Mean Platelet Volume 7.2; Monocytes # (A) 0.7 k/uL (0-1.0); Monocytes % (A) 3 %; Neutrophils # (A) 22.3 k/uL (1.3-7.7); Neutrophils % (A) 91 %; Platelet Count 205 k/uL (150-450); RBC 4.03 m/uL (3.80-5.40); RDW 13.8 % (11.5-15.5); WBC 24.7 k/uL (3.8-10.6)
[2019-02-03 07:40] LABS: African American GFR (CKD) >90 (>60 ml/min/1.73 sqM); Anion Gap 8 mmol/L; Blood Urea Nitrogen 6 mg/dL (7-17); Carbon Dioxide 25 mmol/L (22-30); Chloride 105 mmol/L (98-107); Glucose 105 mg/dL (74-99); Potassium 3.9 mmol/L (3.5-5.1); Sodium 138 mmol/L (137-145)
[2019-02-03] MEDS ORDERED: DICYCLOMINE 10 MG/ML 2 ML AMP IM SCH (12:00)
[2019-02-03] MEDS: DICYCLOMINE 20 MG TAB PO SCH ×3 (12:42→20:23)
--- NOTE | 2019-02-03 13:39 | P.PN ---
Progress Note - Text Progress Note Date: 02/03/19 Briefly this is a 23-year-old female that was admitted with abdominal pain found to be secondary to sepsis due to gastroenteritis, possible colitis and UTI. The patient continues to have abdominal pain despite being on morphine white count is up to 24.7. She continues on antibiotics with Rocephin and Flagyl, imaging of the abdomen indicates large bowel fluid and fluid levels consistent with ileus and diarrhea. Patient apparently had a large clot of blood from her rectum earlier today, C. diff is pending stool cultures also been ordered. GI consultation pending Focused exam: Tender to deep palpation, hypoactive bowel sounds with some guarding Plan Continue current treatment plan, will add Bentyl for abdominal spasms we'll also consult general surgery and await further recommendations
--- NOTE | 2019-02-03 23:49 | P.CONS ---
History of Present Illness - Reason for Consult Consult date: 02/03/19 Abdominal pain Requesting physician: Kelby Addison - Chief Complaint Abdominal pain, nausea and vomiting - History of Present Illness 23-year-old female who denies any significant past medical history who presented to the hospital with complaints of abdominal pain nausea and vomiting. The patient reports abdominal pain which she initially attributed to her menstruati on. However she reports that the pain continued and became more intense. She states that the pain is in the periumbilical region and lower abdomen, sharp and intense in nature. She denies any similar episodes of pain. Initially she attributed some of the pain to constipation as well and took [id number]-wfwocki laxatives, subsequently having a bowel movement with no improvement in her symptoms. She denies any blood per rectum, melena or hematochezia. She denies any sick contacts, travel, unusual foods, new medications or antibiotics prior to the symptoms developing. She also reports some abdominal distention and gas pains. At baseline bowel movements are normal, one to 2 daily. The patient had some associated nausea and vomiting with her symptoms. Since admission the patient did have some vaginal bleeding which she describes as a passage of clots. Laboratory evaluation has been significant for WBC 24.7, hemoglobin 12.3, platelet count 205,000, total bilirubin 1.4, alkaline phosphatase 73, AST 25, PLT 36 with negative testing for Clostridium difficile by EIA toxin evaluation. Computed tomography scan of the abdomen significant for large amounts of fluid in the bowel suggestive of ileus and diarrhea. She denies any frequency of bowel movements. Currently reporting that abdominal pain is somewhat improved with Bentyl therapy. Review of Systems REVIEW OF SYSTEMS: CONSTITUTIONAL: Denies any fevers, chills, weight change or fatigue. CARDIOVASCULAR: Denies any chest pain, palpitations high or low blood pressures RESPIRATORY: Denies any shortness of breath, hemoptysis or cough. GENITOURINARY: No dysuria or hematuria, but did pass some clots today from her vagina. MUSCULOSKELETAL: No weakness reported. SKIN: Denies any new rashes or lesions, jaundice or pallor. PSYCHIATRIC: Denies any depression or anxiety. NEUROLOGY: Denies headache, denies any new focal deficits. EARS/NOSE/THROAT: No recent hearing change, congestion, nasal discharge or sore throat. EYES: No pain in eyes, discharge or change in vision. GASTROINTESTINAL: As per HPI. Past Medical History Past Medical History: No Reported History History of Any Multi-Drug Resistant Organisms: None Reported Past Surgical History: No Surgical Hx Reported Past Psychological History: Anxiety, Bipolar, Depression Smoking Status: Current every day smoker Past Alcohol Use History: Occasional Past Drug Use History: Marijuana - Past Family History Mother Family Medical History: No Reported History Additional Family Medical History / Comment(s): No family history of ulcerative colitis or Crohn's disease Father Family Medical History: No Reported History Additional Family Medical History / Comment(s): Anxiety, bipolar Medications and Allergies Home Medications Medication Instructions Recorded Confirmed Type No Known Home Medications 02/02/19 02/02/19 History Allergies Allergy/AdvReac Type Severity Reaction Status Date / Time amoxicillin Allergy Rash/Hives Verified 02/02/19 17:21 Physical Exam Vitals: Vital Signs Temp Pulse Pulse Resp BP BP BP 02/03/19 11:30 97.8 F 79 16 111/71 02/03/19 04:50 98.4 F 55 L 20 127/94 02/02/19 23:38 18 02/02/19 23:15 98.6 F 104 H 18 118/78 02/02/19 22:12 18 02/02/19 21:10 100.8 F H 109 H 18 129/63 02/02/19 17:03 100.6 F H 113 H 24 110/67 Pulse Ox 02/03/19 11:30 96 02/03/19 04:50 99 02/02/19 23:38 02/02/19 23:15 97 02/02/19 22:12 02/02/19 21:10 100 02/02/19 17:03 100 Intake and Output 02/02/19 02/03/19 02/03/19 22:59 06:59 14:59 Intake Total 100 Output Total 0 Balance 100 Intake: Oral 100 Output: Stool 0 Other: # Voids 1 Weight 90.718 kg On physical examination, patient appears comfortable in no apparent distress. HEAD: Normocephalic, atraumatic. EYES: No scleral icterus. No conjunctival injection. MOUTH: No lesions, tongue midline. NECK: Trachea midline, no gross abnormalities. CHEST: Clear to auscultation with no wheezing or rhonchi appreciated. HEART: Regular rate and rhythm. ABDOMEN: Soft, obese, tender to palpation. Bowel sounds are positive. No organomegaly. No guarding or rigidity. EXTREMITIES: No pedal edema. SKIN: No rashes, no jaundice. NEUROLOGIC: Alert and oriented x3. No focal deficits. Results CBC & Chem 7: 02/03/19 07:05 02/03/19 07:05 Labs: Abnormal Lab Results - Last 24 Hours (Table) 02/02/19 02/02/19 02/02/19 Range/Units 17:30 17:30 17:30 WBC 21.4 H (3.8-10.6) k/uL Neutrophils # 20.0 H (1.3-7.7) k/uL Lymphocytes # 0.9 L (1.0-4.8) k/uL Sodium 135 L (137-145) mmol/L Carbon Dioxide 18 L (22-30) mmol/L BUN 5 L (7-17) mg/dL Glucose 135 H (74-99) mg/dL Total Bilirubin 1.4 H (0.2-1.3) mg/dL Urine pH 8.5 H (5.0-8.0) Urine Protein 1+ H (Negative) Urine Ketones 1+ H (Negative) Ur Leukocyte Esterase Moderate H (Negative) Urine WBC 19 H (0-5) /hpf Urine Mucus Occasional H (None) /hpf 02/03/19 02/03/19 Range/Units 07:05 07:05 WBC 24.7 H (3.8-10.6) k/uL Neutrophils # 22.3 H (1.3-7.7) k/uL Lymphocytes # (1.0-4.8) k/uL Sodium (137-145) mmol/L Carbon Dioxide (22-30) mmol/L BUN 6 L (7-17) mg/dL Glucose 105 H (74-99) mg/dL Total Bilirubin (0.2-1.3) mg/dL Urine pH (5.0-8.0) Urine Protein (Negative) Urine Ketones (Negative) Ur Leukocyte Esterase (Negative) Urine WBC (0-5) /hpf Urine Mucus (None) /hpf CT scan - abdomen: report reviewed (Computed tomography scan of the abdomen significant for large amounts of fluid in the bowel suggestive of ileus and diarrhea.) Assessment and Plan (1) Abdominal pain Narrative/Plan: 23-year-old female who presented with complaints of abdominal pain, nausea and vomiting with some associated alteration in bowel habits. Denies any signs or symptoms of GI bleeding. Symptoms occurred acutely over 24-48 hours. No prior episodes of similar nature. The patient denies any triggers such as sick contacts, unusual foods, antibiotics or new medications. Pain is improved with antispasmodic therapy. She did have a leukocytosis which was markedly elevated. No prior EGD or colonoscopy reported. Testing on the stool for Clostridium difficile was negative with evaluation by EIA for toxin. Etiology unknown at this time with suspicion for viral or bacterial gastroenteritis given CT findings of a fluid-filled colon without any evidence of inflammation, less likely functional bowel disorder, inflammatory process or other etiology. Current Visit: Yes Status: Acute Code(s): R10.9 - UNSPECIFIED ABDOMINAL PAIN SNOMED Code(s): 84986470 (2) Leukocytosis Current Visit: Yes Status: Acute Code(s): D72.829 - ELEVATED WHITE BLOOD CELL COUNT, UNSPECIFIED SNOMED Code(s): 135744257 Plan: Supportive care Okay for liquid diet Continue Bentyl 4 times a day Continue antibiotic therapy with ceftriaxone and Flagyl Await results of stool culture We'll repeat testing for Clostridium difficile with PCR which is more sensitive given significant leukocytosis ESR and CRP ordered Will order x-ray abdomen in the morning Await recommendations from surgical service Continue pain control and IV fluid hydration Continue to monitor CBC, CMP Thank you for allowing us to participate in the care of the patient we will continue to follow
[2019-02-04] MEDS: MORPHINE SULFATE 4 MG/ML SYRINGE IVP PRN ×3 (00:30→09:42)
[2019-02-04] MEDS: metroNIDAZOLE-NS PMX 500 MG in SALINE 1 100ML.BAG IVPB SCH ×3 (00:47→17:52)
[2019-02-04] MEDS: SODIUM CHLORIDE 0.9% 1,000 ML IV SCH ×3 (00:48→17:51)
[2019-02-04] MEDS: HEPARIN SODIUM,PORCINE 5,000 UNIT/ML 1 ML VIAL SQ SCH ×3 (00:51→17:51)
[2019-02-04] MEDS: DICYCLOMINE 20 MG TAB PO SCH (07:24)
--- NOTE | 2019-02-04 07:31 | XR ---
EXAMINATION TYPE: XR abdomen 1V DATE OF EXAM: 02/04/2019 7:17 AM CLINICAL HISTORY: CT abdomen pelvis dated 02/02/2019 TECHNIQUE: Single supine KUB image of the abdomen is obtained. COMPARISON: None. FINDINGS air is seen within the nondilated colon and small bowel. Small bowel loops are upper limits of normal size in the mid abdomen measuring 3.0 cm. Large bowel is also upper limits of normal size m easuring 6.0 cm in the midabdomen. No gross evidence of pneumoperitoneum although this is limited on the supine view. Osseous structures appear intact. Lung bases are not imaged. No suspicious calcifica tions in the abdomen or pelvis. IMPRESSION: Small and large bowel are air filled and upper limits of normal size although overall the re is a nonobstructive bowel gas pattern.
[2019-02-04 08:04] LABS: Basophils % (A) 0 %; Eosinophils # (A) 0.2 k/uL (0-0.7); Eosinophils % (A) 1 %; HGB 11.7 gm/dL (11.4-16.0); Lymphocytes # (A) 1.5 k/uL (1.0-4.8); Lymphocytes % (A) 11 %; MCH 30.6 pg (25.0-35.0); MCHC 34.5 g/dL (31.0-37.0); MCV 88.5 fL (80.0-100.0); Mean Platelet Volume 6.9; Monocytes # (A) 0.5 k/uL (0-1.0); Monocytes % (A) 4 %; Neutrophils # (A) 11.4 k/uL (1.3-7.7); Neutrophils % (A) 83 %; Platelet Count 192 k/uL (150-450); RBC 3.84 m/uL (3.80-5.40); RDW 12.6 % (11.5-15.5); WBC 13.7 k/uL (3.8-10.6)
[2019-02-04 09:52] LABS: Erythrocyte Sedimentation Rate 76 mm/hr (0-20)
--- NOTE | 2019-02-04 10:10 | P.PN ---
Subjective Progress Note Date: 02/04/19 Patient seen and examined at bedside still complaining of abdominal pain despite morphine and Bentyl , nursing reporting some relief intermittently with patient's discomfort . Patient afebrile leukocytosis trending down from 24.7- 13.7 CRP elevated at 248 . C. diff was negative patient is not having any diarrhea, x-ray this morning showing nonobstructive bowel gas pattern Objective - Vital Signs Vital signs: Vital Signs Temp 99.2 F 02/04/19 04:35 Pulse 92 02/04/19 04:35 Resp 20 02/04/19 04:35 BP 102/68 02/04/19 04:35 Pulse Ox 99 02/04/19 04:35 Intake & Output 02/03/19 02/04/19 02/04/19 18:59 06:59 18:59 Intake Total 300 Output Total 0 Balance 300 Intake: Oral 300 Output: Stool 0 Other: # Voids 2 1 # Bowel Movements 2 0 - Exam Constitutional: No acute distress, conversant complaining of abdominal pain Eyes: Anicteric sclerae, moist conjunctiva, no lid-lag, PERRLA ENMT: NC/AT,Oropharynx clear, no erythema, exudates Neck:Supple, FROM, no masses, or JVD, No carotid bruits; No thyromegaly Lungs: Clear to auscultation, Clear to percussion, Normal respiratory effort, no accessory muscle use Cardiovascular: Heart regular in rate and rhythm, No murmurs, gallops, or rubs no peripheral edema Abdominal: Soft mildly tender to palpation, nom distended, no guarding, no rebound or rigidity, Normoactive bowel sounds No hepatomegaly, No splenomegaly, No palpable mass No abdominal wall hernia noted Skin: Normal temperature, tone, texture, turgor, No induration No subcutaneous nodules, No rash, lesions, No ulcers Extremities:No digital cyanosis No clubbing, Pedal pulses intact and symmetrical Radial pulses intact and symmetrical Normal gait and station, No calf tenderness Psychiatric: Alert and oriented to person, place and time, Appropriate affect Intact judgement Neuro: Muscles Strength 5/5 in all 4 extremities, Sensation to light touch grossly present throughout, Cranial nerves II-XII grossly intact. No focal sensory deficits - Labs CBC & Chem 7: 02/04/19 07:36 02/03/19 07:05 Labs: Abnormal Lab Results - Last 24 Hours (Table) 02/04/19 02/04/19 Range/Units 07:36 07:36 WBC 13.7 H (3.8-10.6) k/uL Neutrophils # 11.4 H (1.3-7.7) k/uL ESR 76 H (0-20) mm/hr C-Reactive Protein 248.6 H (<10.0) mg/L Microbiology - Last 24 Hours (Table) 02/03/19 07:32 Stool Culture - Preliminary Stool 02/02/19 22:26 Blood Culture - Preliminary Blood No Growth after 24 hours Assessment and Plan (1) Gastroenteritis Narrative/Plan: * Viral versus bacterial * Leukocytosis trending down, stool cultures pending, C. diff negative * Continue Flagyl and Rocephin * Appreciate GI recommendations Current Visit: Yes Status: Acute Code(s): K52.9 - NONINFECTIVE GASTROENTERITIS AND COLITIS, UNSPECIFIED SNOMED Code(s): 34359237 (2) Abdominal pain Narrative/Plan: * Secondary to problem listed above vs possible INDEPENDENT CONSULTANT source (less likely) * Patient on morphine and anti-spasmodics with bentyl * Gen. surgery consulted for further recommendations yesterday Current Visit: Yes Status: Acute Code(s): R10.9 - UNSPECIFIED ABDOMINAL PAIN SNOMED Code(s): 49546991 (3) Leukocytosis Narrative/Plan: * Likely infectious patient previously febrile leukocytosis trending down * Stool cultures are pending, blood and urine cultures also ordered Current Visit: Yes Status: Acute Code(s): D72.829 - ELEVATED WHITE BLOOD CELL COUNT, UNSPECIFIED SNOMED Code(s): 078045644 (4) Vaginal bleeding Narrative/Plan: * INDEPENDENT CONSULTANT consult pending * Transvaginal ultrasound only revealing small right ovarian cyst Current Visit: Yes Status: Acute Code(s): N93.9 - ABNORMAL UTERINE AND VAGINAL BLEEDING, UNSPECIFIED SNOMED Code(s): 808895194 Plan: * Disposition * Anticipated discharge later today if cleared by GI and INDEPENDENT CONSULTANT
--- NOTE | 2019-02-04 11:11 | P.GSCN ---
History of Present Illness Consult date: 02/04/19 Reason for Consult: abdominal pain Requesting physician: Benjamin Dukes History of present illness: CHIEF COMPLAINT: Abdominal pain HISTORY OF PRESENT ILLNESS: 23 year old female who presented to the ER with a chief complaint of abdominal pain. She reports generalized abdominal pain for 4 days. She reports nausea and vomiting for 2 days but states she has had no episodes of emesis this morning. Denies nausea. She has been having diarrhea but denies diarrhea this morning. She reports passing flatus. She denies fever or chills. She began vaginal bleeding yesterday evening. Reports she finished her cycle over a week ago. OBGYN has been consulted for evaluation. PAST MEDICAL HISTORY: See list. PAST SURGICAL HISTORY: See list. SOCIAL HISTORY: No illicit drug use. REVIEW OF SYSTEMS: CONSTITUTIONAL: Denies fever or chills. HEENT: Denies blurred vision, vision changes, or eye pain. Denies hemoptysis CARDIOVASCULAR: Denies chest pain or pressure. RESPIRATORY: No shortness of breath. GASTROINTESTINAL: Refer to HPI for pertinent findings HEMATOLOGIC: Denies bleeding disorders. GENITOURINARY: Denies any blood in urine. SKIN: Denies pruitis. Denies rash. PHYSICAL EXAM: VITAL SIGNS: Reviewed. GENERAL: Well-developed who appears uncomfortable. She is crying and restless during examination. HEENT: No sclera icterus. Extraocular movements grossly intact. Moist buccal mucosa. Head is atraumatic, normocephalic. ABDOMEN: Soft. Nondistended. Diffuse abdominal tenderness with minimal palpation. Positive bowel sounds. NEUROLOGIC: Alert and oriented. Cranial nerves II through XII grossly intact. LABORATORY DATA: WBC on admission 21.4. Repeat 24.7. WBC this morning 13.7. CRP 248.6. ESR 76. C. diff negative. IMAGIN. CT abdomen and pelvis large bowel fluid and fluid levels consistent with ileus and diarrhea. 2. Abdominal x-ray: Small and large bowel are air-filled in upper limits of normal size although overall there is a nonobstructive bowel gas pattern ASSESSMENT: 1. Abdominal pain, nausea, vomiting, diarrhea 2. Leukocytosis 3. Elevated CRP and ESR 4. Vaginal bleeding 5. Urinary tract infection PLAN: Continue diet as tolerated. Continue antibiotics. Continue IV fluids. Patient has been started on Bentyl per Dr. Velocci Case discussed with Dr. Kasper who reviewed CT and laboratory data. No surgic al intervention recommended. Continue supportive care. Defer further workup to GI service as no surgical intervention is warranted at this time Nurse practitioner note has been reviewed by physician. Signing provider agrees with the documented findings, assessment, and plan of care. Past Medical History Past Medical History: No Reported History History of Any Multi-Drug Resistant Organisms: None Reported Past Surgical History: No Surgical Hx Reported Past Psychological History: Anxiety, Bipolar, Depression Smoking Status: Current every day smoker Past Alcohol Use History: Occasional Past Drug Use History: Marijuana - Past Family History Mother Family Medical History: No Reported History Additional Family Medical History / Comment(s): No family history of ulcerative colitis or Crohn's disease Father Family Medical History: No Reported History Additional Family Medical History / Comment(s): Anxiety, bipolar Medications and Allergies Home Medications Medication Instructions Recorded Confirmed Type No Known Home Medications 02/02/19 02/02/19 History Allergies Allergy/AdvReac Type Severity Reaction Status Date / Time amoxicillin Allergy Rash/Hives Verified 02/02/19 17:21 Surgical - Exam Vital Signs Temp Pulse Resp BP Pulse Ox 100.6 F H 113 H 24 110/67 100 02/02/19 17:03 02/02/19 17:03 02/02/19 17:03 02/02/19 17:03 02/02/19 17:03 Results - Labs 02/04/19 07:36 02/03/19 07:05 Abnormal Lab Results - Last 24 Hours (Table) 02/04/19 02/04/19 Range/Units 07:36 07:36 WBC 13.7 H (3.8-10.6) k/uL Neutrophils # 11.4 H (1.3-7.7) k/uL ESR 76 H (0-20) mm/hr C-Reactive Protein 248.6 H (<10.0) mg/L Microbiology - Last 24 Hours (Table) 02/03/19 07:32 Stool Culture - Preliminary Stool 02/02/19 22:26 Blood Culture - Preliminary Blood No Growth after 24 hours
--- NOTE | 2019-02-04 12:30 | P.PN ---
Subjective Progress Note Date: 02/04/19 Principal diagnosis: abdominal pain Reports vaginal bleeding w/ clots second cycle within a month with increased abdominal pain. Presently no diarrhea or rectal bleeding. Bilious emesis this morning. Afebrile. WBC decreased 13.7. ESR 76. CRP 248.6. Abd xrays no obstruction. GS consulted. Stool culture/WBC pending. Bentyl not helping pain. Objective - Vital Signs Vital signs: Vital Signs Temp 99.2 F 02/04/19 04:35 Pulse 92 02/04/19 04:35 Resp 20 02/04/19 04:35 BP 102/68 02/04/19 04:35 Pulse Ox 99 02/04/19 04:35 Intake & Output 02/03/19 02/04/19 02/04/19 18:59 06:59 18:59 Intake Total 300 Output Total 0 Balance 300 Intake: Oral 300 Output: Stool 0 Other: # Voids 2 1 # Bowel Movements 2 0 - Exam General appearance: The patient is alert, oriented, in no acute distress. HET: Head is normocephalic and atraumatic. Pupils are equal and reactive. Oropharynx is clear without lesions. Neck: Supple without lymphadenopathy. Trachea midline. Heart: S1 S2. Regular rate and rhythm. Lungs: No crackles or wheezes are heard. Abdomen: Soft, severe tenderness, mildly bloated with hypoactive bowel sounds. Positive guarding and rebound. Was requesting her abdomen to not be touched but was evaluated anyway. Extremities: Normal skin color and turgor. No cyanosis, rash, ulceration, clubbing, or edema. Radial and pedal pulses are 2/4 bilaterally. Neurological: No focal deficits. Strength and sensation are grossly intact. - Labs CBC & Chem 7: 02/04/19 07:36 02/03/19 07:05 Labs: Abnormal Lab Results - Last 24 Hours (Table) 02/04/19 02/04/19 Range/Units 07:36 07:36 WBC 13.7 H (3.8-10.6) k/uL Neutrophils # 11.4 H (1.3-7.7) k/uL ESR 76 H (0-20) mm/hr C-Reactive Protein 248.6 H (<10.0) mg/L Microbiology - Last 24 Hours (Table) 02/03/19 07:32 Stool Culture - Preliminary Stool 02/02/19 22:26 Blood Culture - Preliminary Blood No Growth after 24 hours Assessment and Plan (1) Abdominal pain Narrative/Plan: 23 y/o female admitted with nausea vomiting abdominal pain few episodes of diarr hea with vaginal bleeding. Abdominal imaging reports ileus without obstruction Underlying inflammatory possible ischemic possible infectious gastroenteritis colitis cannot be excluded with elevated CRP/sed rate. Current Visit: Yes Status: Acute Code(s): R10.9 - UNSPECIFIED ABDOMINAL PAIN SNOMED Code(s): 55935189 (2) Elevated C-reactive protein (CRP) Current Visit: Yes Status: Acute Code(s): R79.82 - ELEVATED C-REACTIVE PROTEIN (CRP) SNOMED Code(s): 812454350648425 (3) Elevated sed rate Current Visit: Yes Status: Acute Code(s): R70.0 - ELEVATED ERYTHROCYTE SEDIMENTATION RATE SNOMED Code(s): 714509194 (4) Leukocytosis Current Visit: Yes Status: Acute Code(s): D72.829 - ELEVATED WHITE BLOOD CELL COUNT, UNSPECIFIED SNOMED Code(s): 834127550 (5) Vaginal bleeding Current Visit: Yes Status: Acute Code(s): N93.9 - ABNORMAL UTERINE AND VAGINAL BLEEDING, UNSPECIFIED SNOMED Code(s): 200393803 Plan: 1. Case d/w Dr. Ellis CT/US/abd xray reports reviewed, will request lactic acid and fecal calprotectin. GS consult. HORSEBACK EXCAVATOR consult. NPO except meds. 2. IV abx. DC Bentyl not helping pain. 3. Will follow with you. Assessment and plan of care d/w Dr. Ellis
--- NOTE | 2019-02-04 12:45 | P.OBCN ---
History of Present Illness Consult date: 02/04/19 Chief complaint: Menstrual irregularity History of present illness: Please see dictated admission history and physical and consultations notes on this patient. In brief summary this is a 23-year-old 0 para 0 female who is admitted approximately 2 days ago with complaints of abdominal pain, nausea and vomiting. Patient's evaluation has shown an elevated white blood cell count in CAT scan findings consistent with gastroenteritis. In the process of evaluation the patient did have a pelvic ultrasound which was normal, with endometrial lining of 0.66 cm. Patient reports she's been having regular menstrual cycles and her last was approximately week to week and a half ago however began having some vaginal bleeding while here in the hospital. Patient states that she's not on anything for contraceptive and is not currently in a r elationship. Beta-hCG is negative. I've been consulted due to the irregular menstrual bleeding. Review of Systems Constitutional: Denies chills, Denies fever Genitourinary: Reports as per HPI Past Medical History Past Medical History: No Reported History History of Any Multi-Drug Resistant Organisms: None Reported Past Surgical History: No Surgical Hx Reported Past Psychological History: Anxiety, Bipolar, Depression Smoking Status: Current every day smoker Past Alcohol Use History: Occasional Past Drug Use History: Marijuana - Past Family History Mother Family Medical History: No Reported History Additional Family Medical History / Comment(s): No family history of ulcerative colitis or Crohn's disease Father Family Medical History: No Reported History Additional Family Medical History / Comment(s): Anxiety, bipolar Medications and Allergies Home Medications Medication Instructions Recorded Confirmed Type No Known Home Medications 02/02/19 02/02/19 History Allergies Allergy/AdvReac Type Severity Reaction Status Date / Time amoxicillin Allergy Rash/Hives Verified 02/02/19 17:21 Exam Vital Signs Temp Pulse Resp BP Pulse Ox 02/04/19 04:35 99.2 F 92 20 102/68 99 02/03/19 21:00 98 F 88 20 113/77 100 02/03/19 13:56 97.6 F 81 16 104/64 99 Intake and Output 02/03/19 02/04/19 02/04/19 22:59 06:59 14:59 Intake Total 200 100 Output Total 0 Balance 200 100 Intake: Oral 200 100 Output: Stool 0 Other: # Voids 1 1 # Bowel Movements 0 0 Results Pelvic ultrasound shows normal uterus with an endometrium of 0.66 cm and a follicular cyst of the right ovary. CAT scan of the abdomen shows findings consistent with bowel changes Result Diagrams: 02/04/19 07:36 02/03/19 07:05 Abnormal Lab Results - Last 24 Hours (Table) 02/04/19 02/04/19 Range/Units 07:36 07:36 WBC 13.7 H (3.8-10.6) k/uL Neutrophils # 11.4 H (1.3-7.7) k/uL ESR 76 H (0-20) mm/hr C-Reactive Protein 248.6 H (<10.0) mg/L Microbiology - Last 24 Hours (Table) 02/03/19 07:32 Stool Culture - Preliminary Stool 02/02/19 22:26 Blood Culture - Preliminary Blood No Growth after 24 hours Assessment and Plan Assessment: This is a 23-year-old 0 para 0 female with previous normal and regular menstrual cycles now with 1 episode of midcycle bleeding. Unfortunately this is a very common occurrence and not a sign of pathology. This is certainly not the cause of her gastrointestinal problems. I reassured the patient that this breakthrough bleeding most likely is due to the current stress she has going on with her gastrointestinal problems. I do not recommend further evaluation or in tervention. In general it is recommended just to keep a menstrual calendar and then unless this is a persistent problem no further treatment is recommended. Patient should follow-up with her primary care physician after hospitalization.
[2019-02-04] MEDS ORDERED: ALPRAZolam 0.25 MG TAB PO PRN (12:54)
[2019-02-04] MEDS ORDERED: TEMAZEPAM 15 MG CAP PO PRN (12:54)
[2019-02-04] MEDS ORDERED: HYDROmorphone 0.5 MG/0.5 ML SYRINGE IVP PRN (12:54)
[2019-02-04] MEDS: LEVOFLOXACIN 500MG-D5W PMX 500 MG in DEXTROSE/WATER 1 100ML.BAG IVPB SCH (13:15)
[2019-02-04] MEDS: PANTOPRAZOLE 40 MG/10 ML VIAL IVP SCH ×2 (13:15→20:02)
--- NOTE | 2019-02-04 14:29 | PN ---
PROGRESS NOTE DATE OF SERVICE: 02/04/2019 This 23-year-old woman who was admitted with significant abdominal pain and initial diarrhea is being closely monitored at this time. The patient apparently used some laxative at home. The patient also had monthly periods which is finished at this time. The patient also seen by the Gastroenterology and Surgery as well. No chest pain or palpitations. PAST MEDICAL HISTORY: Reviewed. REVIEW OF SYSTEMS: CARDIOVASCULAR SYSTEM: No angina. RESPIRATORY SYSTEM: As mentioned earlier. GI: As mentioned earlier. : As mentioned earlier. NERVOUS SYSTEM: No numbness or weakness. CURRENT MEDICATIONS: Current medications are reviewed and include medications are: 1. Tylenol 650 q.6. 2. Turrell 5 mg q.6 p.r.n. 3. Xanax 0.25 t.i.d. 4. Heparin subcu q.8. 5. Dilaudid p.r.n. 6. Motrin. 7. Levaquin 500 mg daily. 8. Flagyl 500 mg IV q.8. 9. Narcan p.r.n. 10.Zofran. 11.Protonix 40 mg b.i.d. 12.Restoril. PHYSICAL EXAMINATION: The patient is alert and oriented x3. Pulse 92, blood pressure 102/68, respiration 20, temperature 99.2, pulse ox 99% on room air. HEENT: Conjunctivae normal. NECK: No jugular venous distention. CARDIOVASCULAR: S1, S2 muffled. RESPIRATORY: Breath sounds diminished at the bases. No rhonchi, no crackles. ABDOMEN: Soft. Mild diffuse discomfort on palpation. No guarding. No mass palpable. LEGS: No edema, no swelling. NERVOUS SYSTEM: Higher functions as mentioned earlier. Moves all 4 limbs. No focal deficits. LYMPHATICS: No lymphadenopathy of the neck, axillae or groin. SKIN: No ulcer, rash or bleeding. JOINTS: No active deforming arthropathy. LABS: WBC 13.7 and C-reactive protein is 248. ASSESSMENT: 1. Abdominal pain, diarrhea, possibly acute enteritis versus colitis with systemic inflammatory response syndrome. 2. Severe continued abdominal pain. 3. Hyponatremia. 4. Possible urinary tract infection. 5. Elevated bilirubin. 6. Increased WBC. 7. History of anxiety, bipolar depression. 8. History of continued ongoing nicotine dependence. 9. History of THC. 10.FULL CODE. RECOMMENDATIONS AND DISCUSSION: This 23-year-old woman who presented with multiple complex medical issues, we will monitor the patient closely. Continue the current medications. Continue symptomatic treatment. Will initiate broad-spectrum IV antibiotics. Follow the cultures. Otherwise, gastroenterology evaluation. Guarded prognosis because of multiple complex medical issues. DVT prophylaxis symptomatic treatment. Further recommendations will follow. I would also recommend the patient to follow up with primary physician closely in the outpatient setting. MMODL / IJN: [id number] /
[2019-02-04 14:46] VITALS: RESP 16
[2019-02-04] MEDS: HYDROcodone/APAP 5-325MG 1 EACH TAB PO PRN ×2 (14:52→21:25)
[2019-02-04] MEDS: IBUPROFEN 400 MG TAB PO PRN (20:08)
[2019-02-05] MEDS: metroNIDAZOLE-NS PMX 500 MG in SALINE 1 100ML.BAG IVPB SCH ×2 (00:51→08:34)
[2019-02-05] MEDS: HEPARIN SODIUM,PORCINE 5,000 UNIT/ML 1 ML VIAL SQ SCH ×2 (00:53→10:02)
[2019-02-05] MEDS: SODIUM CHLORIDE 0.9% 1,000 ML IV SCH (04:22)
[2019-02-05 07:30] LABS: Basophils % (A) 0 %; Eosinophils # (A) 0.3 k/uL (0-0.7); Eosinophils % (A) 4 %; HCT 30.3 % (34.0-46.0); HGB 10.3 gm/dL (11.4-16.0); Lymphocytes # (A) 1.1 k/uL (1.0-4.8); Lymphocytes % (A) 16 %; MCH 30.2 pg (25.0-35.0); MCHC 33.9 g/dL (31.0-37.0); Mean Platelet Volume 7.3; Monocytes # (A) 0.4 k/uL (0-1.0); Monocytes % (A) 6 %; Neutrophils # (A) 5.2 k/uL (1.3-7.7); Neutrophils % (A) 72 %; Platelet Count 197 k/uL (150-450); RDW 13.4 % (11.5-15.5); WBC 7.2 k/uL (3.8-10.6)
[2019-02-05 07:46] LABS: African American GFR (CKD) >90 (>60 ml/min/1.73 sqM); Anion Gap 6 mmol/L; Blood Urea Nitrogen 7 mg/dL (7-17); Calcium 8.4 mg/dL (8.4-10.2); Carbon Dioxide 27 mmol/L (22-30); Chloride 106 mmol/L (98-107); Glucose 87 mg/dL (74-99); Potassium 3.4 mmol/L (3.5-5.1); Sodium 139 mmol/L (137-145)
[2019-02-05] MEDS: PANTOPRAZOLE 40 MG/10 ML VIAL IVP SCH (08:34)
[2019-02-05] MEDS: HYDROcodone/APAP 5-325MG 1 EACH TAB PO PRN ×2 (08:34→14:08)
--- NOTE | 2019-02-05 11:43 | PN ---
PROGRESS NOTE DATE OF SERVICE: 02/05/2019 The patient is a 23-year-old, pleasant young lady admitted to the hospital with acute onset of severe abdominal pain followed by diarrhea that started about 3 or 4 days ago. She had about 4 or 5 loose bowel movements. She came to the emergency room. She had a CT of the abdomen and pelvis done that showed changes consistent with enteritis. The patient has been started on broad-spectrum antibiotics with Flagyl and Levaquin. Her symptoms were gradually improving. She did have significant leukocytosis at the time of admission to the hospital, which has completely resolved. She had 2 loose bowel movements today. Her abdominal pain is still there, but has improved on a clear liquid diet, tolerating well. No fever, chills, or night sweats. She never had these symptoms in the past. PHYSICAL EXAMINATION: On physical examination, she appears comfortable, no apparent distress. Vital signs are stable. Blood pressure is 95/58, pulse is 78, temperature 98.2. HEENT examination unremarkable. Conjunctivae pink. Sclerae anicteric. Oral cavity, no lesions. NECK: No JVD or lymph node enlargement. Chest was clear to auscultation. HEART: Regular rate and rhythm. ABDOMEN: Mild diffuse tenderness, but no rebound or rigidity. Bowel sounds are positive. EXTREMITIES: No pedal edema. SKIN: No rashes. NEURO: Alert and oriented x3. No focal deficits. LABS: WBC 7.2, hemoglobin 10.3, platelets are normal. Basic metabolic panel is within normal limits. C difficile is negative. Stool lactoferrin is negative. IMPRESSION: Acute onset of diffuse abdominal pain for the last 3 to 4 days duration associated with some diarrhea, possibly related to gastroenteritis/infectious colitis. Clostridium difficile was negative. Stool lactoferrin was negative. The patient on empiric antibiotics with Levaquin and Flagyl and her symptoms are gradually improving. Leukocytosis has resolved and abdominal pain has been improving. RECOMMENDATIONS: 1. Advance to full liquid diet. 2. Continue with empiric antibiotics. 3. No need for any endoscopy intervention at the present time. 4. Discussed the management plan with the patient's mother who is at the bedside and we will follow her closely during her hospital stay. Thank you for this consultation. MMODL / IJN: [id number] /
[2019-02-05] MEDS: LEVOFLOXACIN 500MG-D5W PMX 500 MG in DEXTROSE/WATER 1 100ML.BAG IVPB SCH (13:11)
[2019-02-05 14:41] VITALS: BP 106/72; PULSE 74; TEMP 98.1
[2019-02-05] MEDS ORDERED: metroNIDAZOLE 500 MG TAB PO SCH (16:00)
[2019-02-05] MEDS ORDERED: PANTOPRAZOLE 40 MG TABLET PO SCH (21:00)
--- NOTE | 2019-02-05 22:28 | DS ---
DISCHARGE SUMMARY FINAL DIAGNOSES: 1. Abdominal pain, diarrhea, possible acute enteritis with severe acute respiratory syndrome. 2. Severe continued abdominal pain, improved. 3. Hyponatremia. 4. Possible urinary tract infection. 5. Elevated bilirubin. 6. Increased WBC. 7. History of anxiety, bipolar depression. 8. History of continued ongoing nicotine dependence. 9. History of THC. 10.FULL CODE. DISCHARGE DISPOSITION: The patient will be discharged in stable condition with guarded prognosis. HISTORY OF PRESENT ILLNESS: This 23-year-old woman with a past medical history of multiple medical problems was admitted with abdominal pain, features of enteritis treated symptomatically with empiric antibiotics, improved significantly. Multiple consultants saw the patient, but however the patient is extremely keen on going home at this time. The patient will be discharged in stable condition with guarded prognosis. On exam vitals stable. Cardiovascular: S1, S2. Abdomen is soft nontender. Nervous system: No focal deficits. DISCHARGE ADVICE AND MEDICATIONS: 1. Diet is cardiac, soft, low residue. 2. Follow up with Dr. Zina Pillai in 2-3 days. 3. Follow up with Gastroenterology as recommended. DISCHARGE MEDICATIONS: 1. Flagyl 500 mg q.8h for 5 days. 2. Levaquin 500 mg daily for 5 days. 3. Pepcid 20 mg b.i.d. 4. Tylenol 500 mg q.6h p.r.n. Cultures are negative so far. Follow with Dr. Ellis as advised. MMMAYELINL / LUISN: [id number] /
[2019-02-06] MEDS ORDERED: LEVOFLOXACIN 500 MG TAB PO SCH (13:00)
--- NOTE | 2019-02-15 10:18 | CDI ---
Documentation Clarification Form Date: 02/15/2019 10:08:42 AM From: Andreina Grigsby Phone: If you have a question about this query, please contact Tammy Larson, Gas Combustion Engineer at [phone] Admit Date: 02/02/2019 8:35:00 PM Patient Name: Jacqui Billingsley Visit Number: [id number] Discharge Date: 02/05/2019 2:30:00 PM ATTENTION: The Clinical Documentation Specialists (CDI) and [facility] Coding Staff appreciate your assistance in clarifying documentation. Please respond to the clarification below the line at the bottom and electronically sign. The CDI & [facility] Coding staff will review the response and follow-up if needed. Please note: Queries are made part of the Legal Health Record. If you have any questions, please contact the author of this message via ITS. Dr. Anny Del Cid The patient presented with abdominal pain. H & P documents patient admitted to rule out sepsis and Sepsis secondary to colitis vs UTI. History/Risk Factors: colitis, possible UTI WBC 21.4 24.7 Lactic acid: 1.9 Blood cultures: No growth Vitals signs on admission: 100.6 F, 113 bpm, 110/67 100% RA Treatment: empiric antibiotics and agressive IV hydration Antibiotics: Rocephin and Flagyl Please clarify if patient had sepsis or was it ruled out In your professional opinion, please clarify if these findings signify one of the following conditions Sepsis ruled out Sepsis Other, please specify Unable to determine no sepsis, SIRS MTDD
== END 2019-02-05 14:30 | disposition home or self-care (01) | DRG 392 ==
LOC: EC 16:44 → 4MS4W 20:35
PROVIDERS: ADMIT Hospitalist; ATTEND Hospitalist
DX: K52.9 Noninfective gastroenteritis and colitis, unspecified (principal); E87.1 Hypo-osmolality and hyponatremia; F31.30 Bipolar disorder, current episode depressed, mild or moderate severity, unspecified; N39.0 Urinary tract infection, site not specified; K56.7 Ileus, unspecified; F17.210 Nicotine dependence, cigarettes, uncomplicated; F41.9 Anxiety disorder, unspecified; N83.201 Unspecified ovarian cyst, right side; N92.3 Ovulation bleeding; E80.6 Other disorders of bilirubin metabolism; Z87.440 Personal history of urinary (tract) infections; D72.829 Elevated white blood cell count, unspecified; Z88.0 Allergy status to penicillin; F17.200 Nicotine dependence, unspecified, uncomplicated; I48.91 Unspecified atrial fibrillation
CPT/HCPCS: 36415; 74018; 74177; 76830; 80048; 80053; 81001; 81025; 83605; 83630; 83690; 83993; 85025; 85652; 86140; 87040; 87045; 87046; 87086; 87324; 93975; 96361; 96365; 96375; 96376; 99285

== ENCOUNTER 2020-03-15 08:53 | Emergency (ER) | payer OTHER ==
[2020-03-15 08:58] VITALS: RESP 18
--- NOTE | 2020-03-15 09:35 | ED ---
Female Urogenital HPI - General Chief complaint: Vaginal Bleeding Stated complaint: Possible miscarriage Time Seen by Provider: 03/15/20 08:59 Source: patient, RN notes reviewed Mode of arrival: ambulatory Limitations: no limitations - History of Present Illness Initial comments: This a 24-year-old female presents emergency Department with chief complaint of vaginal bleeding in early . Patient states that she is A0 currently 7 weeks . Patient states that she started having some spotting which is now more clots today. She states it feels her normal mental cycle. Patient has an appointment in March with Dr. Garibay. Patient states that she has no dysuria no urinary frequency no flank pain no chest pain or shortness of breath. Denies any fevers chills. Patient states that she is AB+ blood type. - Related Data Previous Rx's Medication Instructions Recorded Acetaminophen Tab [Tylenol Tab] 500 mg PO Q6H PRN #30 tablet 02/05/19 Famotidine [Pepcid] 20 mg PO BID #10 tablet 02/05/19 Levofloxacin [Levaquin] 500 mg PO DAILY #5 tab 02/05/19 metroNIDAZOLE [Flagyl] 500 mg PO Q8HR #15 tab 02/05/19 Allergies Allergy/AdvReac Type Severity Reaction Status Date / Time amoxicillin Allergy Rash/Hives Verified 03/15/20 08:58 Review of Systems ROS Statement: Those systems with pertinent positive or pertinent negative responses have been documented in the HPI. ROS Other: All systems not noted in ROS Statement are negative. Past Medical History Past Medical History: No Reported History History of Any Multi-Drug Resistant Organisms: None Reported Past Surgical History: No Surgical Hx Reported Past Psychological History: Anxiety, Bipolar, Depression Smoking Status: Current every day smoker Past Alcohol Use History: Occasional Past Drug Use History: Marijuana - Past Family History Mother Family Medical History: No Reported History Additional Family Medical History / Comment(s): No family history of ulcerative colitis or Crohn's disease Father Family Medical History: No Reported History Additional Family Medical History / Comment(s): Anxiety, bipolar General Exam Limitations: no limitations General appearance: alert, in no apparent distress Head exam: Present: atraumatic, normocephalic, normal inspection Eye exam: Present: normal appearance, PERRL, EOMI. Absent: scleral icterus, conjunctival injection, periorbital swelling ENT exam: Present: normal exam, mucous membranes moist Neck exam: Present: normal inspection, full ROM. Absent: tenderness, meningismu s, lymphadenopathy Respiratory exam: Present: normal lung sounds bilaterally. Absent: respiratory distress, wheezes, rales, rhonchi, stridor Cardiovascular Exam: Present: regular rate, normal rhythm, normal heart sounds. Absent: systolic murmur, diastolic murmur, rubs, gallop, clicks Neurological exam: Present: alert, oriented X3 Skin exam: Present: warm, dry, intact, normal color. Absent: rash Course Vital Signs 03/15/20 08:56 Temperature 97.6 F Pulse Rate 105 H Respiratory 18 Rate Blood Pressure 137/89 O2 Sat by Pulse 100 Oximetry Medical Decision Making - Medical Decision Making 24-year-old female presented for vaginal bleeding early patient ultrasound does not reveal an IUP at this time, hCG is 713 this concerning for possible miscarriage in early . She'll have repeat hCG and return for any worsening change in symptoms. - Lab Data Result diagrams: 03/15/20 09:30 03/15/20 09:32 Lab Results 03/15/20 03/15/20 03/15/20 Range/Units 09:21 09:30 09:32 WBC 9.4 (3.8-10.6) k/uL RBC 4.48 (3.80-5.40) m/uL Hgb 13.8 (11.4-16.0) gm/dL Hct 41.7 (34.0-46.0) % MCV 93.0 (80.0-100.0) fL MCH 30.8 (25.0-35.0) pg MCHC 33.1 (31.0-37.0) g/dL RDW 12.2 (11.5-15.5) % Plt Count 246 (150-450) k/uL Neutrophils % 75 % Lymphocytes % 16 % Monocytes % 5 % Eosinophils % 2 % Basophils % 0 % Neutrophils # 7.1 (1.3-7.7) k/uL Lymphocytes # 1.5 (1.0-4.8) k/uL Monocytes # 0.5 (0-1.0) k/uL Eosinophils # 0.2 (0-0.7) k/uL Basophils # 0.0 (0-0.2) k/uL Sodium 136 L (137-145) mmol/L Potassium 4.0 (3.5-5.1) mmol/L Chloride 107 (98-107) mmol/L Carbon Dioxide 23 (22-30) mmol/L Anion Gap 6 mmol/L BUN 4 L (7-17) mg/dL Creatinine 0.64 (0.52-1.04) mg/dL Est GFR (CKD-EPI)AfAm >90 (>60 ml/min/1.73 sqM) Est GFR (CKD-EPI)NonAf >90 (>60 ml/min/1.73 sqM) Glucose 105 H (74-99) mg/dL Calcium 9.1 (8.4-10.2) mg/dL HCG, Quant 713.1 mIU/mL Urine Color Light Yellow Urine Appearance Clear (Clear) Urine pH 6.5 (5.0-8.0) Ur Specific [address] 1.004 (1.001-1.035) Urine Protein Trace H (Negative) Urine Glucose (UA) Negative (Negative) Urine Ketones Negative (Negative) Urine Blood Large H (Negative) Urine Nitrite Negative (Negative) Urine Bilirubin Negative (Negative) Urine Urobilinogen <2.0 (<2.0) mg/dL Ur Leukocyte Esterase Negative (Negative) Urine RBC 29 H (0-5) /hpf Urine WBC 1 (0-5) /hpf Ur Squamous Epith Cells 1 (0-4) /hpf Urine Bacteria Rare H (None) /hpf Blood Type Blood Type Recheck Bld Type Recheck Status 03/15/20 Range/Units 09:32 WBC (3.8-10.6) k/uL RBC (3.80-5.40) m/uL Hgb (11.4-16.0) gm/dL Hct (34.0-46.0) % MCV (80.0-100.0) fL MCH (25.0-35.0) pg MCHC (31.0-37.0) g/dL RDW (11.5-15.5) % Plt Count (150-450) k/uL Neutrophils % % Lymphocytes % % Monocytes % % Eosinophils % % Basophils % % Neutrophils # (1.3-7.7) k/uL Lymphocytes # (1.0-4.8) k/uL Monocytes # (0-1.0) k/uL Eosinophils # (0-0.7) k/uL Basophils # (0-0.2) k/uL Sodium (137-145) mmol/L Potassium (3.5-5.1) mmol/L Chloride (98-107) mmol/L Carbon Dioxide (22-30) mmol/L Anion Gap mmol/L BUN (7-17) mg/dL Creatinine (0.52-1.04) mg/dL Est GFR (CKD-EPI)AfAm (>60 ml/min/1.73 sqM) Est GFR (CKD-EPI)NonAf (>60 ml/min/1.73 sqM) Glucose (74-99) mg/dL Calcium (8.4-10.2) mg/dL HCG, Quant mIU/mL Urine Color Urine Appearance (Clear) Urine pH (5.0-8.0) Ur Specific [address] (1.001-1.035) Urine Protein (Negative) Urine Glucose (UA) (Negative) Urine Ketones (Negative) Urine Blood (Negative) Urine Nitrite (Negative) Urine Bilirubin (Negative) Urine Urobilinogen (<2.0) mg/dL Ur Leukocyte Esterase (Negative) Urine RBC (0-5) /hpf Urine WBC (0-5) /hpf Ur Squamous Epith Cells (0-4) /hpf Urine Bacteria (None) /hpf Blood Type AB Positive Blood Type Recheck No Previous Record Bld Type Recheck Status [facility] ONLY Disposition Clinical Impression: Threatened miscarriage in early Disposition: HOME SELF-CARE Condition: Stable Instructions (If sedation given, give patient instructions): Threatened M iscarriage (ED) Additional Instructions: Please return to the Emergency Department if symptoms worsen or any other concerns. Is patient prescribed a controlled substance at d/c from ED?: No Referrals: None,Stated [Primary Care Provider] - 1-2 days Jeremy Francisco DO [Doctor of Osteopathic Medicine] - 1-2 days Time of Disposition: 10:25
[2020-03-15 09:36] LABS: Appearance,Urine Clear (Clear); Bacteria,Urine Rare /hpf; Bilirubin,Urine Negative (Negative); Blood,Urine Large (Negative); Color,Urine Light Yellow; Glucose,Urine (UA) Negative (Negative); Ketones,Urine Negative (Negative); Leukocyte Esterase,Urine Negative (Negative); Nitrite,Urine Negative (Negative); PH, Urine 6.5 (5.0-8.0); Protein,Urine Trace (Negative); RBC,Urine 29 /hpf (0-5); Specific Gravity,Urine 1.004 (1.001-1.035); Squamous Epithelial Cell,Urine 1 /hpf (0-4); Urobilinogen,Urine <2.0 mg/dL (<2.0); WBC,Urine 1 /hpf (0-5)
[2020-03-15 09:45] LABS: Basophils % (A) 0 %; Eosinophils # (A) 0.2 k/uL (0-0.7); Eosinophils % (A) 2 %; HCT 41.7 % (34.0-46.0); HGB 13.8 gm/dL (11.4-16.0); Lymphocytes # (A) 1.5 k/uL (1.0-4.8); Lymphocytes % (A) 16 %; MCH 30.8 pg (25.0-35.0); MCHC 33.1 g/dL (31.0-37.0); Mean Platelet Volume 6.9; Monocytes # (A) 0.5 k/uL (0-1.0); Monocytes % (A) 5 %; Neutrophils # (A) 7.1 k/uL (1.3-7.7); Neutrophils % (A) 75 %; Platelet Count 246 k/uL (150-450); RBC 4.48 m/uL (3.80-5.40); RDW 12.2 % (11.5-15.5); WBC 9.4 k/uL (3.8-10.6)
[2020-03-15 09:51] LABS: African American GFR (CKD) >90 (>60 ml/min/1.73 sqM); Anion Gap 6 mmol/L; Blood Urea Nitrogen 4 mg/dL (7-17); Calcium 9.1 mg/dL (8.4-10.2); Carbon Dioxide 23 mmol/L (22-30); Chloride 107 mmol/L (98-107); Glucose 105 mg/dL (74-99); Non-African American GFR(CKD) >90 (>60 ml/min/1.73 sqM); Sodium 136 mmol/L (137-145)
[2020-03-15 10:08] LABS: HCG,Quantitative Serum 713.1 mIU/mL
--- NOTE | 2020-03-15 10:20 | US ---
EXAMINATION TYPE: Transabdominal DATE OF EXAM: 03/15/2020 9:57 AM COMPARISON: NONE CLINICAL HISTORY: bleeding. bleeding EXAM PERFORMED: Transabdominal (TA) EXAM MEASUREMENTS: GESTATIONAL AGE / DATING Physician Established: Not yet established Dates by LMP: 01/18/2021 (8 weeks/0 days) EDC: 10/25/2020 Dates by First Scan: No previous this is first scan Dates by Current Scan for: No IUP seen at this time MATERNAL ANATOMY Uterus: 8.6 x 4.3 x 5.0 cm Right Ovary: 2.9 x 2.0 x 1.9 cm Left Ovary: 2.9 x 2.3 x 2.1 Post CDS / Adnexa: wnl Presence of free fluid: no Presence of corpus luteal cyst: no Presence of subchorionic bleed: no GESTATION / SURVEY IUP: No IUP seen at this time Beta HcG (if available): Not available at this time Heterogeneous anteverted uterus. Endometrium does not appear significantly thickened and not well tsering ntified to accurately measure on transabdominal investigation. No gestational sac, yolk sac, or pole. No free fluid in pelvis. Both ovaries seen and normal in size without suspicious adnexal mass. IMPRESSION: Findings could reflect too early to visualize intrauterine or spontaneous abort ion. Ectopic not entirely excluded. Serial beta-hCG and ultrasound follow-up should be cons idered based on clinical correlation.
[2020-03-15 11:00] VITALS: BP 128/87; PULSE 72; TEMP 98.5
== END 2020-03-15 10:46 | disposition home or self-care (01) ==
LOC: EC 08:53
DX: O20.0 Threatened abortion (principal); O99.331 Smoking (tobacco) complicating pregnancy, first trimester; F17.200 Nicotine dependence, unspecified, uncomplicated; Z3A.01 Less than 8 weeks gestation of pregnancy; Z88.0 Allergy status to penicillin
CPT/HCPCS: 36415; 76801; 80048; 81001; 84702; 85025; 86900; 86901; 99284

== ENCOUNTER → 2020-03-17 | Outpatient (CLI) | payer OTHER | END | disposition home or self-care (01) | LOC: LABMAIN 12:35 | PROVIDERS: ATTEND Physician Assistant | DX: O20.0 Threatened abortion (principal) | CPT/HCPCS: 36415; 84702 ==

== ENCOUNTER 2023-08-26 06:12 | Emergency (ER) | payer OTHER ==
[2023-08-26] MEDS: LIDOCAINE/EPINEPHR/TETRACAINE 5 ML BOTTLE TOPICAL ONE (06:34)
[2023-08-26 06:35] VITALS: TEMP 98.1
[2023-08-26] MEDS ORDERED: ALTEPLASE 10 MG in SODIUM CHLORIDE 0.9% 100 ML IRRIGATION ONE (07:02)
[2023-08-26] MEDS: TRANEXAMIC ACID 1,000 MG/10 ML VIAL IRRIGATION ONE (07:17)
--- NOTE | 2023-08-26 07:30 | ED ---
Wound/Laceration HPI - General Chief Complaint: Wound/Laceration Stated Complaint: Wound on right index finger Time Seen by Provider: 08/26/23 06:20 Source: patient, RN notes reviewed Mode of arrival: ambulatory Limitations: no limitations - History of Present Illness Initial Comments: This is a 28-year-old female who presents to the emergency department for a laceration to her right index finger. States that early this morning shortly before arrival, she was walking down the stairs, but could not see because it was dark, and slipped, falling down one of the steps. She injured her right index finger in the process. Unsure what she injured it on, but states that she has not been able to stop the bleeding. Pain is controlled at this time. Tetan us vaccine is up-to-date. - Related Data Previous Rx's Medication Instructions Recorded Acetaminophen Tab [Tylenol Tab] 500 mg PO Q6H PRN #30 tablet 02/05/19 Famotidine [Pepcid] 20 mg PO BID #10 tablet 02/05/19 levoFLOXacin [Levaquin] 500 mg PO DAILY #5 tab 02/05/19 metroNIDAZOLE [Flagyl] 500 mg PO Q8HR #15 tab 02/05/19 Allergies Allergy/AdvReac Type Severity Reaction Status Date / Time amoxicillin Allergy Rash/Hives Verified 08/26/23 06:19 Review of Systems ROS Statement: Those systems with pertinent positive or pertinent negative responses have been documented in the HPI. ROS Other: All systems not noted in ROS Statement are negative. Past Medical History Past Medical History: No Reported History History of Any Multi-Drug Resistant Organisms: None Reported Past Surgical History: No Surgical Hx Reported Past Psychological History: Anxiety, Bipolar, Depression Smoking Status: Current every day smoker Past Alcohol Use History: Occasional Past Drug Use History: Marijuana - Past Family History Mother Family Medical History: No Reported History Additional Family Medical History / Comment(s): No family history of ulcerative colitis or Crohn's disease Father Family Medical History: No Reported History Additional Family Medical History / Comment(s): Anxiety, bipolar General Exam Limitations: no limitations General appearance: alert, in no apparent distress Head exam: Present: atraumatic, normocephalic, normal inspection Respiratory exam: Present: normal lung sounds bilaterally. Absent: respiratory distress, wheezes, rales, rhonchi, stridor Cardiovascular Exam: Present: regular rate, normal rhythm, normal heart sounds. Absent: systolic murmur, diastolic murmur, rubs, gallop, clicks Neurological exam: Present: alert, oriented X3, CN II-XII intact Psychiatric exam: Present: normal affect, normal mood Skin exam: Present: other (Skin avulsion to the finger pad of the right index finger. Active bleeding. Visible subcutaneous tissue.) Course Vital Signs 08/26/23 08/26/23 06:16 08:12 Temperature 98.1 F 98.1 F Pulse Rate 67 72 Respiratory 16 18 Rate Blood Pressure 146/86 150/86 O2 Sat by Pulse 98 100 Oximetry Procedures - Laceration Laceration #1 Consent Obtained: verbal consent Indication: laceration Site: other (Finger) Size (cm): 1 Description: flap, avulsion Depth: simple, single layer Type of Sutures: vicryl Size of Sutures: 5-0 Number of Sutures: 2 Technique: other (figure of 8) Medical Decision Making - Medical Decision Making This is a 28 year old female who presents to the emergency department for a laceration. Was pt. sent in by a medical professional or institution? @ -No Did you speak to anyone other than the patient for history? @ -No Did you review nursing and triage notes? @ -Yes, and I agree, it is accurate with regards to the patient's symptoms. Were old charts reviewed? @ -No Differential Diagnosis? @ -Not applicable EKG interpreted by me (3pts min.)? @ -Not obtained X-rays interpreted by me (1pt min.)? @ -Not obtained CT interpreted by me (1pt min.)? @ -Not obtained U/S interpreted by me (1pt. min.)? @ -Not obtained What testing was considered but not performed? (CT, X-rays, U/S, labs)? Why? @ -None What meds were considered but not given? Why? @ -None Did you discuss the management of the patient with other professionals? @ -No Did you reconcile home meds? @ -No Was smoking cessation discussed for >3mins.? @ -No Was critical care preformed (if so, how long)? @ -No Were there social determinants of health that impacted care today? How? (Homelessness, low income, unemployed, alcoholism, drug addiction, transportation, low edu. Level, literacy, decrease access to med. care, usp, rehab)? @ -No Was there de-escalation of care discussed even if they declined? (Discuss DNR or withdrawal of care, Hospice)? @ -No What co-morbidities impacted this encounter? (DM, HTN, Smoking, COPD, CAD, Cancer, CVA, Hep., AIDS, mental health diagnosis, sleep apnea, morbid obesity)? @ -None Was patient admitted / discharged? @ -Discharged. Patient had a large skin avulsion on the finger pad of the right index finger. We initially applied LET, however we could not control the bleeding with that and I was unable to get a clear visual field. This was then irrigated with TXA. Bleeding improved but was still present. She appeared to have severed a vessel that was continuing to bleed. This was tied off with a suture and the bleeding had improved significantly afterwards. She maintained full range of motion and strength of the finger. Gelfoam was applied on top and the finger was bandaged. Advised ibuprofen and Tylenol as needed for pain relief. Undiagnosed new problem with uncertain prognosis? @ -None Drug Therapy requiring intensive monitoring for toxicity (Heparin, Nitro, Insulin, Cardizem)? @ -None Were any procedures done? @ -Laceration repair with sutures Diagnosis/symptom? @ -Laceration Acute, or Chronic, or Acute on Chronic? @ -Acute Uncomplicated (without systemic symptoms) or Complicated (systemic symptoms)? @ -Uncomplicated Side effects of treatment? @ -None Exacerbation, Progression, or Severe Exacerbation] @ -Not applicable Poses a threat to life or bodily function? @ -No Return precautions reviewed in depth, the patient is instructed to return to the emergency department with any new, worsening, or concerning symptoms. Patient verbalized understanding. This case was discussed in detail with the attending ED physician, Dr. Lynch. Presentation, findings, and treatment plan discussed in detail as well. Disposition Clinical Impression: Laceration Disposition: HOME SELF-CARE Instructions (If sedation given, give patient instructions): Care For Your Absorbable Stitches (ED) Additional Instructions: Return to the emergency department with any new, worsening, or concerning symptoms. Alternate with ibuprofen and Tylenol as needed for pain relief. Follow up with your primary care provider in 1-2 days. Is patient prescribed a controlled substance at d/c from ED?: No Referrals: Vernon Weathers, PAC [PHYSICIAN SIMULATION ENGINEER] - 1-2 days Time of Disposition: 08:00
[2023-08-26] MEDS ORDERED: ACET/COD 300 MG/30 MG STARTER PACK 6 TAB BTL PO STA (08:05)
[2023-08-26 08:34] VITALS: BP 150/86; PULSE 72; RESP 18
== END 2023-08-26 08:16 | disposition home or self-care (01) ==
LOC: EC 06:12
DX: S61.210A Laceration without foreign body of right index finger without damage to nail, initial encounter (principal); F17.200 Nicotine dependence, unspecified, uncomplicated; Z88.0 Allergy status to penicillin; W10.9XXA Fall (on) (from) unspecified stairs and steps, initial encounter; Y93.01 Activity, walking, marching and hiking
CPT/HCPCS: 12001; 99282